=== PATIENT | female | born 1990 | race Caucasian/White ===

== ENCOUNTER → 2019-11-24 13:53 | Outpatient (BNVA) | payer OTHER, SELFPAY | PROVIDERS: Family Provider Nurse Practitioner; PCP Nurse Practitioner; Visit Provider Nurse Practitioner Family | DX: R10.11 Right upper quadrant pain (principal); R19.7 Diarrhea, unspecified; R11.2 Nausea with vomiting, unspecified | CPT/HCPCS: 80053; 84443; 85025 ==

== ENCOUNTER 2020-06-18 11:10 | Inpatient (IN) | payer SELFPAY ==
[2020-06-18] VITALS (11 sets, daily range): BP systolic 101–115; BP diastolic 58–80; PULSE 78–108; RESP 14–20; TEMP 37–37.4; O2SAT 95–98; BMI 49.2
[2020-06-18 13:01] LABS: Basophils % 0.2 %; Eosinophils # 0.1 10^3/uL (0.0-0.8); Eosinophils % 0.5 %; Hematocrit 35.8 % (37.0-47.0); Hemoglobin 11.7 g/dL (11.5-15.3); Lymphocytes # 2.2 10^3/uL (0.8-4.8); Mean Corpuscular HGB Conc 32.7 g/dL (30.0-36.0); Mean Corpuscular Hemoglobin 30.3 pg (28.0-34.0); Mean Corpuscular Volume 92.7 fL (81-99); Mean Platelet Volume 9.9 fL (7.4-10.4); Monocytes # 1.3 10^3/uL (0.2-0.9); Monocytes % 8.3 %; Neutrophils # 12.12 10^3/uL (1.8-7.7); Neutrophils % 76.6 %; Nucleated Red Blood Cells % 0 %; Platelet Count 348 10^3/cmm (130-400); Red Blood Count 3.86 10^6/uL (4.1-5.3); Red Cell Distribution Width 12.6 % (12.1-15.1); White Blood Count 15.8 10^3/uL (4.0-10.0)
--- NOTE | 2020-06-18 13:04 | CT_ITS ---
WS: [id number] CT ABDOMEN PELVIS TECHNIQUE: Contrast-enhanced CT of the abdomen and pelvis with coronal and sagittal reformatted image s. CLINICAL INFORMATION: diffuse abdominal pain COMPARISON: None. DLP: 2053.[address] scans at [facility] use at least one of these dose optimization techniques: automat ed exposure control; mA and/or kV adjustment per patient size (includes targeted exams where dose is matched to clinical indication); or iterative reconstruction. FINDINGS: Mild diffuse fatty infiltration liver. Normal gallbladder. Adrenal glands are normal. Normal renal pa renchymal enhancement. 1.5 cm right renal cyst. Lung bases are well aerated. Normal GE junction. Norm al caliber abdominal aorta. Normal gallbladder. Incidental tiny fat-containing umbilical hernia. Small amount of free fluid in the pelvis. Peripheral enhancing right ovarian cyst or corpus luteum cy st measuring 2.7 x 1.9 CM. Small amount of adjacent free fluid with free fluid in the pelvis. Submucosal enhancement and inflammatory stranding involving a few loops of small bowel in the pelvis likely infectious or inflammatory. Recommend correlation for small bowel enteritis. This involves dis karli ileal loops. Normal sigmoid colon. Colon is decompressed and normal in appearance. A few reactive lymph nodes along the mesenteric root and right lower quadrant. Normal appendix in the right lower q uadrant. CT/CT abdomen pelvis w con* [id number] IMPRESSION: 1. Peripherally enhancing right ovarian cyst or corpus luteum cyst measuring 2 .7 x 1.9 cm with adjacent free fluid and free fluid in the pelvis. 2. Submucosal enhancement and inflammatory stranding involving a few loops of small bowel in the pelvis likely infectious or inflammatory. Findings can be se en with inflammatory bowel disease. Recommend correlation for small bowel enter itis. 3. Normal appendix in the right lower quadrant. 4. Mild diffuse fatty infiltration liver. 5. No other significant findings.
--- NOTE | 2020-06-18 13:04 | US_ITS ---
WS: [id number] ULTRASOUND PELVIS TECHNIQUE: Transvaginal. CLINICAL INFORMATION: pain, discharge; CT scan showing poss tubo-ovarian abscess LMP: : No. COMPARISON: None. FINDINGS: Uterus Orientation: Anteverted. Size: 8.5 x 5.1 x 5.8 cm Masses: None. Cervix: Normal. Endometrium: Fluid in the endometrial canal. Endometrium thickness: 0.7 cm. Adnexa: Dilated tubular structure in the left adnexa with internal debris and complex septations susp icious for tubo-ovarian abscess. This does not demonstrate peristalsis. This would correspond to the inflammatory changes seen on the CT. Complex fluid in the cul-de-sac with internal debris. Simple right ovarian cyst Right ovary size: 4.3 x 3.4 x 2.5 cm. Left ovary size: Not visualized Free fluid: Moderate amount of free fluid in the cul-de-sac Other findings: None. US/US transvaginal [id number] IMPRESSION: 1. Suspected left tubo-ovarian abscess with complex fluid and debris. 2. Moderate amount of free fluid in the cul-de-sac with internal debris. 3. Incidental simple right ovarian cyst. Notified ISSA Duque at 06/18/2020 2:59 PM.
--- NOTE | 2020-06-18 13:06 | W.ED.ABDPA2 ---
Documented by User: ISSA Duque 06/18/20 16:26 HPI - Abdominal Pain General: Chief Complaint: Abdominal Pain Stated Complaint: SEVERE AB PAIN Time Seen by Provider: 06/18/20 11:27 Source: patient Mode of arrival: ambulatory Limitations: no limitations History of Present Illness: HPI narrative: Patient is a 30-year-old female who presents to ED today with a complaint of abdominal pain. Patient tells me pain initially began 3 to 4 days ago in her lower left abdomen. She tells me since that time pain has spread and is now diffuse. She was seen at [facility] ED yesterday and had a CT scan performed which showed a 2 mm ureter calculus. Patient states she was discharged home and called today after [facility] radiologist over read [facility] interpretation. Patient states they told her she could have an enteritis or a tubo-ovarian abscess and needed to seek re-evaluation. Patient tells me her pain has progressively worsened since onset. She is having nausea with several episodes of non-bloody vomit. She reports diarrhea. She does admit to yellow odorous vaginal discharge. She reports being monogamous with her partner and has no concern for sexually transmitted infections. Patient reports fever yesterday of 101.3. MD elicited complaint: abdominal pain Associated Symptoms: Reports diarrhea, fever(s), nausea and vomiting; Denies chills, coffee ground emesis, dysuria, heartburn, hematochezia, hematemesis, melena and syncope Review of Systems Const: Reports: fever(s); Denies: chills, body aches, fatigue or malaise Eyes: Denies: change in vision, photophobia or seeing flashes Card: Denies: chest pain, palpitations, edema, swelling of feet/ankles, lightheadedness, syncope, pre-syncope, dyspnea on exertion, orthopnea or leg pain with exertion Resp: Denies: dyspnea, hemoptysis or chest congestion GI: Reports: abdominal pain, nausea, vomiting and diarrhea; Denies: hematemesis, coffee ground emesis, heartburn, hematochezia or melena : Reports: vaginal odor and vaginal discharge; Denies: flank pain, difficulty voiding, dysuria, urinary frequency, urinary urgency, urinary hesitancy, genital lesions, genital pruritis or vaginal bleeding Musc: Denies: neck pain, back pain, extremity pain, extremity swelling, joint pain or joint swelling Skin/Breast: Denies: rash Neuro: Denies: headache(s) PFSH ED PFSH: Medical History Depression with anxiety Surgical History (Updated 06/18/20 @ 19:29 by Mitchel Gallegos MD) No pertinent past surgical history Family History Other Cancer Diabetes Hypertension Psychiatric illness Social History Smoking and tobacco status: current every day smoker Alcohol intake: never Physical Exam Const: COMMON NORMALS: patient oriented x3, no limitations and alert NUTRITIONAL APPEARANCE: obese morbidly obese ORIENTATION/CONSCIOUSNESS: Yes awake, Yes oriented to person, Yes oriented to place and Yes oriented to time HENMT: COMMON NORMALS: normocephalic and atraumatic HEAD & SCALP: normocephalic and atraumatic Resp: COMMON NORMALS: normal respiratory effort and clear to auscultation bilaterally AUSCULTATION: clear to auscultation bilaterally Cardio: COMMON NORMALS: regular rate and regular rhythm RATE: regular rate RHYTHM: regular rhythm GI: COMMON NORMALS: Normal to inspection, nondistended, normoactive bowel sounds present, Soft to palpation, No hepatosplenomegaly present and no masses INSPECTION: Yes normal to inspection AUSCULTATION: Yes normoactive bowel sounds PALPATION: Yes Soft to palpation, Yes Tenderness to palpation present (GI) (diffuse tenderness; pt cries with even light palpation), Yes Guarding due to palpation present (GI) and Yes No hepatosplenomegaly present : COMMON NORMALS: Yes no CVA tenderness BLADDER/KIDNEY EXAM: Yes no CVA tenderness SPECULUM EXAM - CERVIX: Yes Abnormal cervical discharge present yellow BIMANUAL EXAM - VAGINA & UTERUS: Yes cervical motion tenderness and Yes Uterine tenderness BIMANUAL EXAM - ADNEXA, OTHER: Yes tender Back/Pelvis: COMMON NORMALS: no CVA tenderness Extremity: COMMON NORMALS: normal to inspection Neuro: COMMON NORMALS: patient oriented x3 SENSORIUM/ORIENTATION: Yes alert, Yes oriented to person, Yes oriented to place and Yes oriented to time Skin: COMMON NORMALS: no rashes or lesions noted GENERAL SKIN EXAM: no rashes or lesions noted Course Consultations: Consultation #1: Dr. Colby-recommends admission to hospitalist for IV abx and he will consult. Recommends 2mg/kg loading dose of gentamicin then 1.5mg/kg maintenance dose q 8 hours, clindamycin 900mg q 8 hours, and cefoxitin 2g q 6 hours Time: 16:08 Vital Signs: Vital signs: Vital Signs Temperature 98.6 F 06/18/20 11:22 Pulse Rate 78 06/18/20 19:46 Respiratory Rate 16 06/18/20 19:46 Blood Pressure 110/74 06/18/20 19:46 Pulse Oximetry 96 06/18/20 19:46 MDM - Abdominal Pain MDM Narrative: Medical decision making narrative: Patient is a nice 30-year-old female who presented to ED today with a complaint of diffuse abdominal pain. Her pain initially started 5 days ago with left lower pelvic pain. She was initially seen at [facility] and misdiagnosed with a ureter stone. Patient was called the following day after radiology over read and told she needed to seek evaluation due to abnormal CT findings. Patient today on imaging has a left tubo-ovarian abscess with debris and free fluid in her cul-de-sac. She is not tachycardic, hypotensive, or febrile although she does report a fever yesterday of 101.3. She does have leukocytosis at 15.8. She has a normal lactate. Abdominal exam reveals diffuse tenderness and guarding. At this time it is felt patient needs to be admitted for IV antibiotics and evaluated by gynecology for need for surgical intervention. I have spoken to Dr. Colby and discussed US findings. She will be admitted to the hospitalist. Dr. Schreiber is aware of this patient and will speak to hospitalist. Lab Data: Labs: Lab Results 06/18/20 06/18/20 06/18/20 Range/Units 12:50 12:50 12:50 WBC 15.8 H (4.0-10.0) 10^3/ uL RBC 3.86 L (4.1-5.3) 10^6/u L Hgb 11.7 (11.5-15.3) g/dL Hct 35.8 L (37.0-47.0) % MCV 92.7 (81-99) fL MCH 30.3 (28.0-34.0) pg MCHC 32.7 (30.0-36.0) g/dL RDW 12.6 (12.1-15.1) % Plt Count 348 (130-400) 10^3/c mm MPV 9.9 (7.4-10.4) fL Neut % (Auto) 76.6 % Lymph % (Auto) 14.0 % [place] % (Auto) 8.3 % Eos % (Auto) 0.5 % Baso % (Auto) 0.2 % Neut # (Auto) 12.12 H (1.8-7.7) 10^3/u L Lymph # (Auto) 2.2 (0.8-4.8) 10^3/u L [place] # (Auto) 1.3 H (0.2-0.9) 10^3/u L Eos # (Auto) 0.1 (0.0-0.8) 10^3/u L Baso # (Auto) 0.0 (0.0-0.1) 10^3/u L Nucleated RBC % (a uto) 0 % Nucleated RBCs # 0.0 /100WBC Sodium 134 L (136-145) mmol/L Potassium 3.5 (3.5-5.1) mmol/L Chloride 98 (98-107) mmol/L Carbon Dioxide 26 (22-29) mmol/L Anion Gap 13.5 (5-19) BUN 5 L (6-20) mg/dL Creatinine 0.5 (0.5-0.9) mg/dL GFR Calculation 146.9 H (90-130) mL/min Glucose 115 (65-115) mg/dL Calculated Osmolal ity 276 L (285-295) mOsm/k g Lactic Acid (0.5-2.2) mmol/L Calcium 8.8 (8.5-10.5) mg/dL Total Bilirubin 0.6 (0.15-1.2) mg/dL AST 11 (0-32) U/L ALT 14 (0-33) U/L Alkaline Phosphata se 97 (35-105) IU/L Total Protein 7.2 (6.6-8.7) g/dL Albumin 3.7 (3.5-5.2) g/dL Globulin 3.5 (1.3-4.6) g/dL Lipase 62 H (13-60) U/L HCG, Qual Negative (Negative) Urine Color (Yellow) Urine Appearance (CLEAR) Urine pH (5-7) Ur Specific Gravit y (1.005-1.030) Urine Protein (Negative) Urine Glucose (UA) (Normal) Urine Ketones (Negative) Urine Blood (Negative) Urine Nitrate (Negative) Urine Bilirubin (Negative) Urine Urobilinogen (Negative) mg/dL Ur Leukocyte Darlene ase (Negative) 06/18/20 06/18/20 Range/Units 12:50 13:22 WBC (4.0-10.0) 10^3/ uL RBC (4.1-5.3) 10^6/u L Hgb (11.5-15.3) g/dL Hct (37.0-47.0) % MCV (81-99) fL MCH (28.0-34.0) pg MCHC (30.0-36.0) g/dL RDW (12.1-15.1) % Plt Count (130-400) 10^3/c mm MPV (7.4-10.4) fL Neut % (Auto) % Lymph % (Auto) % [place] % (Auto) % Eos % (Auto) % Baso % (Auto) % Neut # (Auto) (1.8-7.7) 10^3/u L Lymph # (Auto) (0.8-4.8) 10^3/u L [place] # (Auto) (0.2-0.9) 10^3/u L Eos # (Auto) (0.0-0.8) 10^3/u L Baso # (Auto) (0.0-0.1) 10^3/u L Nucleated RBC % (a uto) % Nucleated RBCs # /100WBC Sodium (136-145) mmol/L Potassium (3.5-5.1) mmol/L Chloride (98-107) mmol/L Carbon Dioxide (22-29) mmol/L Anion Gap (5-19) BUN (6-20) mg/dL Creatinine (0.5-0.9) mg/dL GFR Calculation (90-130) mL/min Glucose (65-115) mg/dL Calculated Osmolal ity (285-295) mOsm/k g Lactic Acid 0.9 (0.5-2.2) mmol/L Calcium (8.5-10.5) mg/dL Total Bilirubin (0.15-1.2) mg/dL AST (0-32) U/L ALT (0-33) U/L Alkaline Phosphata se (35-105) IU/L Total Protein (6.6-8.7) g/dL Albumin (3.5-5.2) g/dL Globulin (1.3-4.6) g/dL Lipase (13-60) U/L HCG, Qual (Negative) Urine Color Yellow (Yellow) Urine Appearance Clear (CLEAR) Urine pH 5 (5-7) Ur Specific Gravit y 1.010 (1.005-1.030) Urine Protein Neg (Negative) Urine Glucose (UA) Norm (Normal) Urine Ketones Negative (Negative) Urine Blood Neg (Negative) Urine Nitrate Negative (Negative) Urine Bilirubin Neg (Negative) Urine Urobilinogen Norm (Negative) mg/dL Ur Leukocyte Darlene ase Negative (Negative) Imaging Data ^: CT Abd/Pel: Radiologist's impression: [address] [address] [address] Scan Report Signed Patient: Jona Sandoval #: [id number] : 1990Acct#:[id number] Age/Sex: FAD Date: 06/18/20 Loc: [facility]/Bed: Attending Dr: Ordering Provider/Ordering MD: Yuliya Wills Date of Service: 06/18/20 Procedure(s): CT abdomen pelvis w con* [id number] Accession Number(s): [id number] Report Number: [id number] WS: [id number] CT ABDOMEN PELVIS TECHNIQUE: Contrast-enhanced CT of the abdomen and pelvis with coronal and sagittal reformatted images. CLINICAL INFORMATION: diffuse abdominal pain COMPARISON: None. DLP: 2053.[address] scans at [facility] use at least one of these dose optimization techniques: automated exposure control; mA and/or kV adjustment per patient size (includes targeted exams where dose is matched to clinical indication); or iterative reconstruction. FINDINGS: Mild diffuse fatty infiltration liver. Normal gallbladder. Adrenal glands are normal. Normal renal parenchymal enhancement. 1.5 cm right renal cyst. Lung bases are well aerated. Normal GE junction. Normal caliber abdominal aorta. Normal gallbladder. Incidental tiny fat-containing umbilical hernia. Small amount of free fluid in the pelvis. Peripheral enhancing right ovarian cyst or corpus luteum cyst measuring 2.7 x 1.9 CM. Small amount of adjacent free fluid with free fluid in the pelvis. Submucosal enhancement and inflammatory stranding involving a few loops of small bowel in the pelvis likely infectious or inflammatory. Recommend correlation for small bowel enteritis. This involves distal ileal loops. Normal sigmoid colon. Colon is decompressed and normal in appearance. A few reactive lymph nodes along the mesenteric root and right lower quadrant. Normal appendix in the right lower quadrant. CT/CT abdomen pelvis w con* [id number] IMPRESSION: 1. Peripherally enhancing right ovarian cyst or corpus luteum cyst measuring 2.7 x 1.9 cm with adjacent free fluid and free fluid in the pelvis. 2. Submucosal enhancement and inflammatory stranding involving a few loops of small bowel in the pelvis likely infectious or inflammatory. Findings can be seen with inflammatory bowel disease. Recommend correlation for small bowel enteritis. 3. Normal appendix in the right lower quadrant. 4. Mild diffuse fatty infiltration liver. 5. No other significant findings. Dictated By:Praneeth Gleason MD Signed By:Praneeth Gleasonigned Date/Time:06/18/20 1411 DD/ 1356 US pelvis: Radiologist's impression: [address] [place] [address] Ultrasound Report Signed with Addenda Patient: Jona Sandoval #: [id number] : 1990Acct#:[id number] Age/Sex: 30 / FADM Date: 06/18/20 Loc: [facility]/Bed: Attending Dr: Ordering Provider/Ordering MD: Yuliya Wills Date of Service: 06/18/20 Procedure(s): US transvaginal [id number] Accession Number(s): [id number] Report Number: [id number] ADDENDUM WS: [id number] Suspected left tubo-ovarian abscess measures 7.9 x 7.4 x 3.3 cm Addendum Dictated By: Praneeth Gleason MD Addendum Signed By: Praneeth Gleasonigned Date/Time:06/18/20 5710 Addendum Cosigned By: WS: [id number] ULTRASOUND PELVIS TECHNIQUE: Transvaginal. CLINICAL INFORMATION: pain, discharge; CT scan showing poss tubo-ovarian abscess LMP: : No. COMPARISON: None. FINDINGS: Uterus Orientation: Anteverted. Size: 8.5 x 5.1 x 5.8 cm Masses: None. Cervix: Normal. Endometrium: Fluid in the endometrial canal. Endometrium thickness: 0.7 cm. Adnexa: Dilated tubular structure in the left adnexa with internal debris and complex septations suspicious for tubo-ovarian abscess. This does not demonstrate peristalsis. This would correspond to the inflammatory changes seen on the CT. Complex fluid in the cul-de-sac with internal debris. Simple right ovarian cyst Right ovary size: 4.3 x 3.4 x 2.5 cm. Left ovary size: Not visualized Free fluid: Moderate amount of free fluid in the cul-de-sac Other findings: None. US/US transvaginal [id number] IMPRESSION: 1. Suspected left tubo-ovarian abscess with complex fluid and debris. 2. Moderate amount of free fluid in the cul-de-sac with internal debris. 3. Incidental simple right ovarian cyst. Notified ISSA Duque at 06/18/2020 2:59 PM. Dictated By:Praneeth Gleason MD Signed By:Praneeth Gleason MDSigned Date/Time:06/18/20 1459 DD/ 1445 Discharge Plan Discharge Patient Disposition: Admitted As Inpatient Admit Provider: Mitchel Gallegos Clinical Impression: Left tubo-ovarian abscess Condition: Stable Sign Out Sign Out Data: Patient Sign Out occurred on 06/18/20 at 17:08. Patient's care was discussed, and care was transferred from to Pernell Schreiber MD, [facility]. Coding Level of Care Code ED Simulation Analyst for Chg Fwd Exam Comprehensive Documented by User: Pernell Schreiber MD, [facility] 06/18/20 20:05 HPI - Abdominal Pain General: Chief Complaint: Abdominal Pain Stated Complaint: SEVERE AB PAIN Time Seen by Provider: 06/18/20 11:27 [facility] ED PFSH: Medical History Depression with anxiety Surgical History (Updated 06/18/20 @ 19:29 by Mitchel Gallegos MD) No pertinent past surgical history Family History Other Cancer Diabetes Hypertension Psychiatric illness Social History Smoking and tobacco status: current every day smoker Alcohol intake: never Course Vital Signs: Vital signs: Vital Signs Temperature 98.6 F 06/18/20 11:22 Pulse Rate 78 06/18/20 19:46 Respiratory Rate 16 06/18/20 19:46 Blood Pressure 110/74 06/18/20 19:46 Pulse Oximetry 96 06/18/20 19:46 MDM - Abdominal Pain MDM Narrative: Medical decision making narrative: This pleasant 30-year-old female patient presents to the emergency department with abdominal pain and on evaluation she has a left tubo-ovarian abscess with some leakage. She also has surrounding inflammatory changes in her bowel around her left ovary. Because of all the above the senior database engineer was contacted and she is to be started on intravenous antibiotics then possibly taken for surgical drainage. She is clinically stable in the emergency department. Medical Records: Attestation: I reviewed the patient's medical records. Lab Data: Attestation: I reviewed the patient's lab results. Labs: Lab Results 06/18/20 06/18/20 06/18/20 Range/Units 12:50 12:50 12:50 WBC 15.8 H (4.0-10.0) 10^3/ uL RBC 3.86 L (4.1-5.3) 10^6/u L Hgb 11.7 (11.5-15.3) g/dL Hct 35.8 L (37.0-47.0) % MCV 92.7 (81-99) fL MCH 30.3 (28.0-34.0) pg MCHC 32.7 (30.0-36.0) g/dL RDW 12.6 (12.1-15.1) % Plt Count 348 (130-400) 10^3/c mm MPV 9.9 (7.4-10.4) fL Neut % (Auto) 76.6 % Lymph % (Auto) 14.0 % [place] % (Auto) 8.3 % Eos % (Auto) 0.5 % Baso % (Auto) 0.2 % Neut # (Auto) 12.12 H (1.8-7.7) 10^3/u L Lymph # (Auto) 2.2 (0.8-4.8) 10^3/u L [place] # (Auto) 1.3 H (0.2-0.9) 10^3/u L Eos # (Auto) 0.1 (0.0-0.8) 10^3/u L Baso # (Auto) 0.0 (0.0-0.1) 10^3/u L Nucleated RBC % (a uto) 0 % Nucleated RBCs # 0.0 /100WBC Sodium 134 L (136-145) mmol/L Potassium 3.5 (3.5-5.1) mmol/L Chloride 98 (98-107) mmol/L Carbon Dioxide 26 (22-29) mmol/L Anion Gap 13.5 (5-19) BUN 5 L (6-20) mg/dL Creatinine 0.5 (0.5-0.9) mg/dL GFR Calculation 146.9 H (90-130) mL/min Glucose 115 (65-115) mg/dL Calculated Osmolal ity 276 L (285-295) mOsm/k g Lactic Acid (0.5-2.2) mmol/L Calcium 8.8 (8.5-10.5) mg/dL Total Bilirubin 0.6 (0.15-1.2) mg/dL AST 11 (0-32) U/L ALT 14 (0-33) U/L Alkaline Phosphata se 97 (35-105) IU/L Total Protein 7.2 (6.6-8.7) g/dL Albumin 3.7 (3.5-5.2) g/dL Globulin 3.5 (1.3-4.6) g/dL Lipase 62 H (13-60) U/L HCG, Qual Negative (Negative) Urine Color (Yellow) Urine Appearance (CLEAR) Urine pH (5-7) Ur Specific Gravit y (1.005-1.030) Urine Protein (Negative) Urine Glucose (UA) (Normal) Urine Ketones (Negative) Urine Blood (Negative) Urine Nitrate (Negative) Urine Bilirubin (Negative) Urine Urobilinogen (Negative) mg/dL Ur Leukocyte Darlene ase (Negative) 06/18/20 06/18/20 Range/Units 12:50 13:22 WBC (4.0-10.0) 10^3/ uL RBC (4.1-5.3) 10^6/u L Hgb (11.5-15.3) g/dL Hct (37.0-47.0) % MCV (81-99) fL MCH (28.0-34.0) pg MCHC (30.0-36.0) g/dL RDW (12.1-15.1) % Plt Count (130-400) 10^3/c mm MPV (7.4-10.4) fL Neut % (Auto) % Lymph % (Auto) % [place] % (Auto) % Eos % (Auto) % Baso % (Auto) % Neut # (Auto) (1.8-7.7) 10^3/u L Lymph # (Auto) (0.8-4.8) 10^3/u L [place] # (Auto) (0.2-0.9) 10^3/u L Eos # (Auto) (0.0-0.8) 10^3/u L Baso # (Auto) (0.0-0.1) 10^3/u L Nucleated RBC % (a uto) % Nucleated RBCs # /100WBC Sodium (136-145) mmol/L Potassium (3.5-5.1) mmol/L Chloride (98-107) mmol/L Carbon Dioxide (22-29) mmol/L Anion Gap (5-19) BUN (6-20) mg/dL Creatinine (0.5-0.9) mg/dL GFR Calculation (90-130) mL/min Glucose (65-115) mg/dL Calculated Osmolal ity (285-295) mOsm/k g Lactic Acid 0.9 (0.5-2.2) mmol/L Calcium (8.5-10.5) mg/dL Total Bilirubin (0.15-1.2) mg/dL AST (0-32) U/L ALT (0-33) U/L Alkaline Phosphata se (35-105) IU/L Total Protein (6.6-8.7) g/dL Albumin (3.5-5.2) g/dL Globulin (1.3-4.6) g/dL Lipase (13-60) U/L HCG, Qual (Negative) Urine Color Yellow (Yellow) Urine Appearance Clear (CLEAR) Urine pH 5 (5-7) Ur Specific Gravit y 1.010 (1.005-1.030) Urine Protein Neg (Negative) Urine Glucose (UA) Norm (Normal) Urine Ketones Negative (Negative) Urine Blood Neg (Negative) Urine Nitrate Negative (Negative) Urine Bilirubin Neg (Negative) Urine Urobilinogen Norm (Negative) mg/dL Ur Leukocyte Darlene ase Negative (Negative) Discharge Plan Discharge Patient Disposition: Admitted As Inpatient Admit Provider: Mitchel Gallegos Clinical Impression: Left tubo-ovarian abscess Condition: Stable Sign Out Sign Out Data: Patient Sign Out occurred on 06/18/20 at 17:08. Patient's care was discussed, and care was transferred from to Pernell Schreiber MD, [facility]. Coding Level of Care Code ED Simulation Analyst for Chg Fwd Exam Comprehensive
[2020-06-18] MEDS: morphine 4 mg/mL SDV 1 mL IVP ×3 (13:14→17:55)
[2020-06-18] MEDS: ondansetron 2 mg/ML SDV 2 mL 4 MG IVP ×3 (13:14→23:32)
[2020-06-18 13:26] LABS: HCG, Serum Qual Negative (Negative)
[2020-06-18 13:29] LABS: Alanine Aminotransferase 14 U/L (0-33); Albumin Level 3.7 g/dL (3.5-5.2); Alkaline Phosphatase 97 IU/L (35-105); Anion Gap 13.5 (5-19); Aspartate Amino Transferase 11 U/L (0-32); Blood Urea Nitrogen 5 mg/dL (6-20); Calcium 8.8 mg/dL (8.5-10.5); Carbon Dioxide 26 mmol/L (22-29); Chloride 98 mmol/L (98-107); Globulin 3.5 g/dL (1.3-4.6); Glomerular Filtration Rate 146.9 mL/min (90-130); Glucose 115 mg/dL (65-115); Lipase 62 U/L (13-60); Osmolality Calculated 276 mOsm/kg (285-295); Potassium 3.5 mmol/L (3.5-5.1); Sodium 134 mmol/L (136-145); Total Bilirubin 0.6 mg/dL (0.15-1.2); Total Protein 7.2 g/dL (6.6-8.7)
[2020-06-18 13:30] LABS: Lactic Sepsis W/Reflex 0.9 mmol/L (0.5-2.2)
[2020-06-18] MEDS: iohexol 300 mg/mL 100 mL Btl IV (13:39)
[2020-06-18 13:50] LABS: Add Urine Microscopic? NO
[2020-06-18 14:01] LABS: Urine Appearance Clear (CLEAR); Urine Color Yellow (Yellow)
[2020-06-18 14:02] LABS: Bilirubin Urine Neg (Negative); Blood Urine Neg (Negative); Glucose Urine UA Norm (Normal); Ketones Urine Negative (Negative); Leukocyte Esterase Urine Negative (Negative); Nitrate Urine Negative (Negative); Protein Urine Neg (Negative); Urobilinogen Urine Norm (Negative); pH Urine 5 (5-7)
[2020-06-18] MEDS: fentaNYL 50 mcg/mL INJ 2mL IVP (14:35)
--- NOTE | 2020-06-18 14:55 | PC.NURSE ---
Vaginal exam chaperoned with ISSA Duque. Swabs obtained, labeled at bedside and taken to lab. Pt tolerated well.
[2020-06-18] MEDS: doxycycline 100 MG in sodium chloride 0.9% (plus) 100 ML IV (16:17)
--- NOTE | 2020-06-18 17:14 | PM.HP ---
Providers/Chief Complaint Primary Care Provider: ARUNA Garza Chief Complaint: SEVERE AB PAIN History of Present Illness 30-year-old female with past medical history significant for dislodged kaela IUD which was apparently removed in 2009 who is now presenting to hospital with abdominal pain. This was associated with fever, chills, nausea and vomiting. Also noted vaginal discharge. Patient was initially seen at outside emergency room where she was found to have a 2 mm urethral calculus on CT scan which was suspected to be the cause. She was discharged from ER on Flomax and pain medication. Apparently today she was notified that she could potentially have a tubo-ovarian abscess. She presented to ER for workup. Initial laboratory workup showed a WBC of 15.8, hemoglobin 11.7, hematocrit 35.8 and a platelet count of 348. sodium 134, potassium 3.5, chloride 98, bicarb 26, BUN 5 and creatinine is 0.5. Beta hCG was negative. Urinalysis was also negative. Abdominal CT was repeated today which showed a peripherally enhancing right ovarian cyst or corpus luteum cyst measuring 2.7 x 1.9 cm with adjacent free fluid and sub-mucosal enhancement and inflammatory stranding involving the loops of small bowel in the pelvis. Transvaginal ultrasound was then performed which showed a suspected left tubo-ovarian abscess measuring 7.9 x 7.4 x 3.3 cm. In emergency room patient was started on IV antibiotics as per recommendations from corrugator helper and admitted to medicine team. Review of Systems General: Reports: 10 or more systems reviewed and unremarkable except in HPI and below Medications/Allergies Home Medications Medication Instructions Recorded Confirmed Last Taken Type acetaminophen [Tylenol] 325 mg PO QID PRN 06/18/20 06/18/20 Unknown History Allergies Allergy/AdvReac Type Severity Reaction Status Date / Time No Known Allergies Allergy Verified 11/18/19 14:56 PFSH Acute PFSH: Medical History Depression with anxiety Surgical History (Updated 06/18/20 @ 19:29 by Mitchel Gallegos MD) No pertinent past surgical history Family History Other Cancer Diabetes Hypertension Psychiatric illness Social History Smoking and tobacco status: current every day smoker Alcohol intake: never Vitals/I&O/Wt Last Vital Signs Temp 98.6 F 06/18/20 11:22 Pulse 100 06/18/20 11:22 Resp 18 06/18/20 16:28 BP 115/80 06/18/20 11:22 Pulse Ox 98 06/18/20 16:28 06/18/20 06/18/20 06/18/20 06:59 14:59 22:59 Intake Total 50 / 50 Balance 50 / 50 Weight last 48 hrs Weight 138.346 kg Physical Exam Narrative: EXAM NARRATIVE: General: Alert, awake, mild distress due to abdominal pain HEENT: Grossly unremarkable CVS : NSR CHEST : Non-labored respiration ABD : Generalized tenderness to palpation : Defer to AUTOMOTIVE SERVICE MANAGEMENT TEACHER/ER examination Ext : No edema Data : 06/18/20 12:50 06/18/20 12:50 A&P Assessment and plan (1) Left tubo-ovarian abscess: Status: Acute (2) Depression with anxiety: Status: Chronic Sepsis due to Left TOA - Denied prior corrugator helper infections including sexually transmitted - TV US - > 7.9 x 7.4 x 3.3 cm - Culture taken in ER - As per corrugator helper recommendation on abx: - Cefoxitin 2g IV q6hr - Clindamycin 900 mg IV q8hr - Gentamycin - Pharmacy to dose - Pain control - NPO at midnight - possible need for OR - IVF at 75 cc/hr - CBC/CMP in am - Zofran PRN for nausea DVT ppx - Low risk, ambulate Attestations Medical Necessity Statement*: Patient admitted to the hospital with sepsis due to left tubo-ovarian abscess requiring IV antibiotics in possible surgery. She will likely require over 2 midnight stay in hospital for evaluation and treatment. Time Spent in Patient Care: Greater than 35 minutes (>than 50% of time spent in counselling and/or direct pt care on unit). Coding Level of Care Code Acute Varnisher Plasticoater for Alexandriag Fwd Diagnoses Left tubo-ovarian abscess N70.93 Depression with anxiety F41.8
--- NOTE | 2020-06-18 17:37 | PC.NURSE ---
Dr Gallegos at bedside.
[2020-06-18] MEDS: sodium chloride 0.9% 1,000 ML 75 ML IV (18:20)
[2020-06-18] MEDS: ketorolac 30 mg/mL INJ 15 MG IVP (18:37)
[2020-06-18] MEDS: HYDROcodone-acetaminophen 5-325 mg Tablet 1 TAB PO ×2 (19:04→23:32)
[2020-06-18] MEDS: SODIUM CHLORIDE 0.9% IV (19:22)
[2020-06-18] MEDS: GENTAMICIN IV (19:22)
[2020-06-18] MEDS: clindamycin 900 MG/50 ML PREMIX 100 MG IV (21:41)
[2020-06-18] MEDS: morphine 4 mg/mL SDV 1 mL 2 MG IVP (21:48)
[2020-06-18] MEDS: ceFOXitin 2,000 MG in sodium chloride 0.9% (plus) 50 ML 100 MG IV (23:02)
[2020-06-19] VITALS (9 sets, daily range): BP systolic 94–106; BP diastolic 56–70; PULSE 78–101; RESP 16–20; TEMP 36.6–37.2; O2SAT 94–98
[2020-06-19] MEDS: clindamycin 900 MG/50 ML PREMIX 100 MG IV ×3 (02:57→16:50)
[2020-06-19] MEDS: morphine 4 mg/mL SDV 1 mL 2 MG IVP ×4 (03:01→23:17)
[2020-06-19 05:57] LABS: Basophils % 0.2 %; Eosinophils # 0.2 10^3/uL (0.0-0.8); Eosinophils % 1.6 %; Hematocrit 32.3 % (37.0-47.0); Hemoglobin 10.3 g/dL (11.5-15.3); Lymphocytes % 15.1 %; Mean Corpuscular HGB Conc 31.9 g/dL (30.0-36.0); Mean Corpuscular Hemoglobin 30.5 pg (28.0-34.0); Mean Corpuscular Volume 95.6 fL (81-99); Mean Platelet Volume 10.2 fL (7.4-10.4); Monocytes # 1.2 10^3/uL (0.2-0.9); Monocytes % 8.9 %; Neutrophils # 9.52 10^3/uL (1.8-7.7); Neutrophils % 73.9 %; Nucleated Red Blood Cells % 0 %; Platelet Count 277 10^3/cmm (130-400); Red Blood Count 3.38 10^6/uL (4.1-5.3); Red Cell Distribution Width 12.6 % (12.1-15.1); White Blood Count 12.9 10^3/uL (4.0-10.0)
[2020-06-19 06:27] LABS: Alanine Aminotransferase 11 U/L (0-33); Albumin Level 3.3 g/dL (3.5-5.2); Alkaline Phosphatase 85 IU/L (35-105); Anion Gap 14.6 (5-19); Aspartate Amino Transferase 10 U/L (0-32); Blood Urea Nitrogen 6 mg/dL (6-20); Carbon Dioxide 26 mmol/L (22-29); Chloride 100 mmol/L (98-107); Globulin 2.5 g/dL (1.3-4.6); Glomerular Filtration Rate 99.6 mL/min (90-130); Glucose 102 mg/dL (65-115); Osmolality Calculated 282 mOsm/kg (285-295); Potassium 3.6 mmol/L (3.5-5.1); Sodium 137 mmol/L (136-145); Total Bilirubin 0.7 mg/dL (0.15-1.2); Total Protein 5.8 g/dL (6.6-8.7)
[2020-06-19] MEDS: ceFOXitin 2,000 MG in sodium chloride 0.9% (plus) 50 ML 100 MG IV ×4 (06:52→23:50)
[2020-06-19] MEDS: ondansetron 2 mg/ML SDV 2 mL 4 MG IVP ×2 (06:53→15:41)
[2020-06-19] MEDS: metoclopramide 5 mg/mL SDV 2 mL IVP (10:10)
[2020-06-19] MEDS: sodium chloride 0.9% 1,000 ML 75 ML IV ×2 (11:38→23:51)
[2020-06-19] MEDS: HYDROcodone-acetaminophen 5-325 mg Tablet 1 TAB PO ×2 (13:47→20:14)
--- NOTE | 2020-06-19 15:18 | PM.PN ---
Subjective Subjective: Interval history: Patient complaining of abdominal pain overnight. Addition was noted to have nausea after pain medication. Medications: Reviewed: Yes Vitals/I&O/Wt Last Vital Signs Temp 98.1 F 06/19/20 11:44 Pulse 78 06/19/20 11:44 Resp 18 06/19/20 11:44 BP 94/56 06/19/20 11:44 Pulse Ox 96 06/19/20 11:44 06/19/20 06/19/20 06/19/20 06:59 14:59 22:59 Intake Total 332.5 / 482.5 1390 / 1390 Balance 332.5 / 482.5 1390 / 1390 Weight last 48 hrs Weight 138.346 kg Physical Exam Narrative: EXAM NARRATIVE: General: Alert, awake, No apparent distress HEENT: Grossly unremarkable CVS : NSR CHEST : Non-labored respiration ABD : Generalized tenderness to palpation : Defer to INTERNAL MEDICINE PHYSICIAN/ER examination Ext : No edema Data : 06/19/20 04:43 06/19/20 04:43 Micro: Microbiology 06/18/20 14:52 Wet Prep - Final Vaginal A&P Assessment and plan (1) Left tubo-ovarian abscess: Status: Acute (2) Depression with anxiety: Status: Chronic Sepsis due to Left TOA - Denied prior learning technologies specialist infections including sexually transmitted - WBC improving - TV US - > 7.9 x 7.4 x 3.3 cm - Culture taken in ER - As per learning technologies specialist recommendation on abx: - Cefoxitin 2g IV q6hr - Clindamycin 900 mg IV q8hr - Gentamycin - Pharmacy to dose - Pain control - IVF at 75 cc/hr - CBC/CMP in am - Zofran PRN for nausea GI ppx - Protonix 40mg PO daily DVT ppx - Low risk, ambulate - SCDs Attestations Medical Necessity Statement*: Will require further hospitalization for managment of TOA requiring IV abx Time Spent in Patient Care: Greater than 35 minutes (>than 50% of time spent in counselling and/or direct pt care on unit). Coding Level of Care Code Acute Shale Processing Technician for Chg Fwd Diagnoses Left tubo-ovarian abscess N70.93 Depression with anxiety F41.8
[2020-06-19] MEDS: pantoprazole DR 40 mg Tablet PO (15:41)
--- NOTE | 2020-06-19 17:08 | PC.CHAP ---
Pastoral Care Encounter/Spiritual Assessment Type of Contact [] Declined juvenile probation officer visit [x] Patient/Family/Request visit [] Outpatient visit [] Follow-up visit [] Physician referral [] Code/Alert [] Routine visit [] Staff referral [] Actively dying [] Patient sleeping [] Family support [] [] Out of room [] Palliative care [] [x] Receiving care in room [] Pre-surgical visit [] Trauma [] Long length of stay [] ICU visit [] Other: Relational/Emotional Strength [x] Patient feels connected with others/family/visitors/staff [] Distress [] Loneliness/isolation [] Abandonment Spirituality of Patient [] Person of Alexandra [] Attends Sabianism of their Alexandra [x] Believes in Prayer [] Reads Bible or Yazdanism materials [] There are Spiritual issues to be addressed Heel Seat Laster Interventions [x] Prayer [x] Active listening [x] Non-anxious presence [] Spiritual/emotional support [] Crisis/trauma care [] Spiritual counseling [] Bereavement support [] Provided bereavement packet [] Provided Bible/devotional materials [] Provided toy/stuffed animal, coloring book to patient or family member [] Provided Communion [] Anointing/[place] [] Salvation [x] Completed spiritual assessment [] Other: Impact on Illness or Injury [] Angry [] Fearful [] Anxious [] Often cries [] Exhaustion [] Unable to work [] Unable to attend gnosticism [] Unable to walk/stand [] Unable to read [] Unable to drive [] Unable to eat/drink [] Unable to sleep [] Unable to be with family [] Patient intubated [] Other: Summary A happy couple, her was with her. I asked if I could pray with them, & it was 'alright.' Time spent with patient 5min
--- NOTE | 2020-06-19 21:00 | PC.NURSE ---
PT STATES THAT SHE IS VERY UPSET WITH THE CARE THAT SHE HAS HAD. SHE WAS NOT HAPPY ABOUT THE VISIT WITH THE HOSPITALIST, DR PELAYO, BECAUSE SHE FELT THAT HE JUST BLEW ME OFF AND DID NOT ADDRESS MY CONCERNS . SHE IS UPSET THAT THE OBGYN DR HAS NOT COME TO SEE HER AFTER SHE WAS TOLD IN THE ER HE WOULD COME AND SEE HER AND POSSIBLY DISCUSS SURGERY. PT STATED I JUST WANT MY TO COME GET ME AND IS VERY TEARFUL. THIS RN ALERTED CHARGE NURSE AND FRENCH TUTOR OR PATIENT'S CONCERNS. AFTER GETTING IN TOUCH WITH OBGYN, DR SON, THIS NURSE RELAYED HIS PLAN TO PATIENT AND THAT HE WOULD BE IN TO SEE HER TOMORROW MORNING 06/20. PT STATED THAT SHE FEELS BETTER KNOWING THAT NOW. NO OTHER QUESTIONS AT THIS TIME.
[2020-06-19] MEDS: nicotine 21 mg Patch 1 PATCH TRANSDERMA (23:51)
[2020-06-20] VITALS (7 sets, daily range): BP systolic 96–118; BP diastolic 61–68; PULSE 76–89; RESP 18; TEMP 36.3–37.5; O2SAT 95–98
[2020-06-20] MEDS: HYDROcodone-acetaminophen 5-325 mg Tablet 1 TAB PO ×5 (01:50→21:31)
[2020-06-20] MEDS: clindamycin 900 MG/50 ML PREMIX 50 MG IV (02:20)
[2020-06-20] MEDS: ondansetron 2 mg/ML SDV 2 mL 4 MG IVP ×3 (02:24→16:50)
[2020-06-20 03:07] LABS: Basophils % 0.3 %; Eosinophils # 0.1 10^3/uL (0.0-0.8); Eosinophils % 1.3 %; Hematocrit 31.8 % (37.0-47.0); Hemoglobin 10.1 g/dL (11.5-15.3); Lymphocytes # 2.2 10^3/uL (0.8-4.8); Lymphocytes % 22.4 %; Mean Corpuscular HGB Conc 31.8 g/dL (30.0-36.0); Mean Corpuscular Hemoglobin 29.5 pg (28.0-34.0); Mean Platelet Volume 9.5 fL (7.4-10.4); Monocytes % 10.1 %; Neutrophils # 6.48 10^3/uL (1.8-7.7); Neutrophils % 65.5 %; Nucleated Red Blood Cells % 0 %; Platelet Count 298 10^3/cmm (130-400); Red Blood Count 3.42 10^6/uL (4.1-5.3); Red Cell Distribution Width 12.3 % (12.1-15.1); White Blood Count 9.9 10^3/uL (4.0-10.0)
[2020-06-20 03:29] LABS: Gentamicin Trough 0.3 ug/mL (0.0-8.0)
[2020-06-20 03:31] LABS: Alanine Aminotransferase 11 U/L (0-33); Alkaline Phosphatase 84 IU/L (35-105); Anion Gap 13.4 (5-19); Aspartate Amino Transferase 17 U/L (0-32); Blood Urea Nitrogen 3 mg/dL (6-20); Calcium 8.3 mg/dL (8.5-10.5); Carbon Dioxide 27 mmol/L (22-29); Chloride 102 mmol/L (98-107); Globulin 3.5 g/dL (1.3-4.6); Glucose 149 mg/dL (65-115); Osmolality Calculated 287 mOsm/kg (285-295); Potassium 3.4 mmol/L (3.5-5.1); Sodium 139 mmol/L (136-145); Total Bilirubin 0.5 mg/dL (0.15-1.2); Total Protein 6.5 g/dL (6.6-8.7)
[2020-06-20] MEDS: morphine 4 mg/mL SDV 1 mL 2 MG IVP ×2 (04:48→21:36)
[2020-06-20] MEDS: ceFOXitin 2,000 MG in sodium chloride 0.9% (plus) 50 ML 100 MG IV ×3 (04:49→16:51)
[2020-06-20] MEDS: clindamycin 900 MG/50 ML PREMIX 100 MG IV ×2 (08:16→17:41)
[2020-06-20] MEDS: pantoprazole DR 40 mg Tablet PO (08:16)
[2020-06-20] MEDS: lanolin oint 7 gm 1 APPLIC TOPICAL (10:10)
--- NOTE | 2020-06-20 12:21 | PC.RESP ---
Smoking Cessation information sent to patient.
--- NOTE | 2020-06-20 12:43 | P.PN_ITS ---
Subjective Subjective: Interval history: C/o abdominal pain and nausea. noted improvement in nausea with reglan. low grade fevers. Medications: Reviewed: Yes Vitals/I&O/Wt Last Vital Signs Temp 99.5 F 06/20/20 11:43 Pulse 84 06/20/20 11:43 Resp 18 06/20/20 11:43 BP 96/61 06/20/20 11:43 Pulse Ox 98 06/20/20 11:43 06/19/20 06/20/20 06/20/20 22:59 06:59 14:59 Intake Total 340 / 1730 1077.50 / 2807.50 Output Total 700 / 700 600 / 600 Balance -360 / 1030 1077.50 / 2107.50 -600 / -600 Physical Exam Narrative: EXAM NARRATIVE: General: Alert, awake, No apparent distress HEENT: Grossly unremarkable CVS : NSR CHEST : Non-labored respiration ABD : Generalized tenderness to palpation : Defer to TRANSFORMER ASSEMBLER/ER examination Ext : No edema Data : 06/20/20 02:56 06/20/20 02:56 A&P Assessment and plan (1) Left tubo-ovarian abscess: Status: Acute (2) Depression with anxiety: Status: Chronic Sepsis due to Left TOA - Denied prior imcu specialist infections including sexually transmitted - Leukocytosis resolved. - TV US - > 7.9 x 7.4 x 3.3 cm - Culture taken in ER - As per imcu specialist recommendation on abx: - Cefoxitin 2g IV q6hr - Clindamycin 900 mg IV q8hr - Gentamycin - Pharmacy to dose - Pain control - IVF at 75 cc/hr - CBC/CMP in am - Zofran / Reglan PRN for nausea - Awaiting further TRANSFORMER ASSEMBLER plan Hypokalemia - K 3.3 - KCL 20 MEQ PO x 1 - BMP in am GI ppx - Protonix 40mg PO daily DVT ppx - Low risk, ambulate - SCDs Attestations Medical Necessity Statement*: will require further hospitalization for IV antibiotics. Time Spent in Patient Care: Greater than 35 minutes (>than 50% of time spent in counselling and/or direct pt care on unit) . Coding Level of Care Code Acute Oil [employer] Gas Well Treatment Operator for Chg Fwd Diagnoses Left tubo-ovarian abscess N70.93 Depression with anxiety F41.8
[2020-06-20] MEDS: potassium chloride ER 20 mEq Tablet PO (13:27)
[2020-06-20] MEDS: sodium chloride 0.9% 1,000 ML 75 ML IV (13:27)
[2020-06-21] VITALS (18 sets, daily range): BP systolic 94–147; BP diastolic 59–84; PULSE 60–101; RESP 14–20; TEMP 36.4–37.1; O2SAT 93–100
[2020-06-21] MEDS: ceFOXitin 2,000 MG in sodium chloride 0.9% (plus) 50 ML 100 MG IV ×3 (00:21→23:05)
[2020-06-21] MEDS: ondansetron 2 mg/ML SDV 2 mL 4 MG IVP ×4 (00:23→19:01)
[2020-06-21] MEDS: nicotine 21 mg Patch 1 PATCH TRANSDERMA (00:24)
[2020-06-21] MEDS: clindamycin 900 MG/50 ML PREMIX 100 MG IV ×2 (02:04→11:19)
[2020-06-21] MEDS: HYDROcodone-acetaminophen 5-325 mg Tablet 1 TAB PO ×2 (02:04→11:35)
[2020-06-21] MEDS: sodium chloride 0.9% 1,000 ML 75 ML IV (02:05)
[2020-06-21] MEDS: ketorolac 30 mg/mL INJ IVP ×2 (04:30→20:18)
[2020-06-21] MEDS: morphine 4 mg/mL SDV 1 mL 2 MG IVP (04:31)
[2020-06-21 05:14] LABS: Basophils % 0.4 %; Eosinophils # 0.2 10^3/uL (0.0-0.8); Hematocrit 32.4 % (37.0-47.0); Hemoglobin 10.6 g/dL (11.5-15.3); Lymphocytes # 2.1 10^3/uL (0.8-4.8); Lymphocytes % 19.4 %; Mean Corpuscular HGB Conc 32.7 g/dL (30.0-36.0); Mean Corpuscular Hemoglobin 30.5 pg (28.0-34.0); Mean Corpuscular Volume 93.1 fL (81-99); Monocytes # 1.1 10^3/uL (0.2-0.9); Monocytes % 10.4 %; Neutrophils # 7.27 10^3/uL (1.8-7.7); Neutrophils % 67.2 %; Nucleated Red Blood Cells % 0 %; Platelet Count 375 10^3/cmm (130-400); Red Blood Count 3.48 10^6/uL (4.1-5.3); Red Cell Distribution Width 12.3 % (12.1-15.1); White Blood Count 10.8 10^3/uL (4.0-10.0)
[2020-06-21 05:43] LABS: Alanine Aminotransferase 14 U/L (0-33); Albumin Level 3.3 g/dL (3.5-5.2); Alkaline Phosphatase 154 IU/L (35-105); Anion Gap 15.4 (5-19); Aspartate Amino Transferase 13 U/L (0-32); Blood Urea Nitrogen 2 mg/dL (6-20); Calcium 8.6 mg/dL (8.5-10.5); Carbon Dioxide 25 mmol/L (22-29); Chloride 100 mmol/L (98-107); Globulin 3.6 g/dL (1.3-4.6); Glucose 102 mg/dL (65-115); Osmolality Calculated 280 mOsm/kg (285-295); Potassium 3.4 mmol/L (3.5-5.1); Sodium 137 mmol/L (136-145); Total Bilirubin 0.4 mg/dL (0.15-1.2); Total Protein 6.9 g/dL (6.6-8.7)
[2020-06-21 05:58] LABS: Lactic Sepsis W/Reflex 0.6 mmol/L (0.5-2.2); Magnesium 1.9 mg/dL (1.7-2.3)
--- NOTE | 2020-06-21 07:08 | US_ITS ---
WS: [id number] ULTRASOUND PELVIS TECHNIQUE: Transvaginal. CLINICAL INFORMATION: tubo-ovarian abscess : No. COMPARISON: June 18, [address] FINDINGS: Uterus Orientation: Anteverted. Size: 8.0 x 4.1 cm Masses: None. Cervix: Normal. Endometrium: Normal. Suspected left tubo-ovarian abscess appears slightly progressed today with increased internal debris and septations and slightly more tubal distention. This measures approximately 7.8 x 7.0 x 4.3 CM. Right ovary not evaluated today due to patient's difficulty tolerating further imaging Left ovary size: Left ovary appears slightly enlarged measuring 4.1 x 3.6 x 4.5 cm. Free fluid: Small amount Other findings: None. US/US transvaginal [id number] IMPRESSION: 1. Suspected left tubo-ovarian abscess appears slightly progressed today with increased internal debris and septations and slightly more tubal distention. Th is measures approximately 7.8 x 7.0 x 4.3 CM. 2. Adjacent left ovary appears to be seen today. This is slightly enlarged and edematous measuring 4.1 x 3.6 x 4.5 cm. 3. Small amount of free fluid in the cul-de-sac. Message left for Fuad Colby MD at 06/21/2020 10:48 AM.
[2020-06-21] MEDS: pantoprazole DR 40 mg Tablet PO (11:35)
[2020-06-21] MEDS: potassium chloride ER 20 mEq Tablet PO (11:35)
--- NOTE | 2020-06-21 12:05 | PM.OBGYCN ---
Providers/Reason for Consult Consulting Physican/Specialty*: CIRCUIT JUDGE Reason for Consult*: Abdominal pain Attending Physician: Mitchel Gallegos Primary Care Provider: ARUNA Garza CIRCUIT JUDGE Consult HPI History of Present Illness Chela Sandoval is a 30 year old female with acute abdominal pain seen in the emergency room. Abdominal pelvic CT scan and ultrasound showed a tubal complex left adnexal mass. Diagnosed with left tubo-ovarian abscess and admitted for 48 hours observation with antibiotics. Review of Systems Const: Reports: fever(s); Denies: chills, body aches, fatigue or malaise Eyes: Denies: change in vision, photophobia or seeing flashes Card: Denies: chest pain, palpitations, edema, swelling of feet/ankles, lightheadedness, syncope, pre-syncope, dyspnea on exertion, orthopnea or leg pain with exertion Resp: Denies: dyspnea, hemoptysis or chest congestion GI: Reports: abdominal pain, nausea, vomiting and diarrhea; Denies: hematemesis, coffee ground emesis, heartburn, hematochezia or melena : Reports: vaginal odor and vaginal discharge; Denies: flank pain, difficulty voiding, dysuria, urinary frequency, urinary urgency, urinary hesitancy, genital lesions, genital pruritis or vaginal bleeding Musc: Denies: neck pain, back pain, extremity pain, extremity swelling, joint pain or joint swelling Skin/Breast: Denies: rash Neuro: Denies: headache(s) Meds/Allergies Home Medications and Allergies Home Medications Medication Instructions Recorded Confirmed Last Taken Type acetaminophen [Tylenol] 325 mg PO QID PRN 06/18/20 06/18/20 Unknown History Allergies Allergy/AdvReac Type Severity Reaction Status Date / Time No Known Allergies Allergy Verified 11/18/19 14:56 Current Medications Current Medications Generic Name Dose Route Start Last Admin Trade Name Freq PRN Reason Stop Dose Admin Hydrocodone Bitart/Acetaminophen 1 tab 06/18/20 17:10 06/21/20 11:35 Hydrocodone-Acetaminophen 5-325 Mg Tablet PO 1 tab Q4H PRN Administration MODERATE TO SEVERE PAIN Sodium Chloride 1,000 mls @ 75 mls/hr 06/18/20 17:15 06/21/20 02:05 Sodium Chloride 0.9% IV 75 mls/hr .[id number] MARIAN Administration Cefoxitin Sodium 2,000 mg/ 50 mls @ 100 mls/hr 06/18/20 23:00 06/21/20 06:00 Sodium Chloride IV 100 mls/hr Q6H MARIAN Administration Protocol Clindamycin HCl/Dextrose 900 mg in 50 mls @ 100 mls/hr 06/19/20 01:00 06/21/20 11:19 Cleocin IV 100 mls/hr Q8H MARIAN Administration Protocol Gentamicin Sulfate 500 mg/ 112.5 mls @ 225 mls/hr 06/20/20 04:30 06/21/20 04:30 Sodium Chloride IV 225 mls/hr Q24H MARIAN Administration As Directed Lanolin 1 applic 06/20/20 09:46 06/20/20 10:10 Lanolin Oint 7 Gm TOPICAL 1 appful PRN PRN Administration DRYNESS Morphine Sulfate 2 mg 06/18/20 17:10 06/21/20 04:31 Morphine 4 Mg/Ml Sdv 1 Ml IVP 2 mg Q4H PRN Administration SEVERE PAIN Nicotine 1 patch 06/19/20 23:45 06/21/20 00:24 Nicotine 21 Mg Patch TRANSDERMA 1 patch DAILY PRN Administration NICOTINE WITHDRAWAL Ondansetron HCl 4 mg 06/18/20 17:10 06/21/20 11:35 Ondansetron 2 Mg/Ml Sdv 2 Ml IVP 4 mg Q8H PRN Administration vomiting, or N/V if npo Pantoprazole Sodium 40 mg 06/19/20 15:20 06/21/20 11:[address] 40 Mg Tablet PO 40 mg DAILY MARIAN Administration PFSH CIRCUIT JUDGE PFSH: Medical History Depression with anxiety Surgical History (Updated 06/18/20 @ 19:29 by Mitchel Gallegos MD) No pertinent past surgical history Family History Other Cancer Diabetes Hypertension Psychiatric illness Social History Smoking and tobacco status: current every day smoker Alcohol intake: never Vitals/I&O/Wt Last Vital Signs Temp 98.2 F 06/21/20 11:51 Pulse 88 06/21/20 11:51 Resp 18 06/21/20 11:51 BP 118/76 06/21/20 11:51 Pulse Ox 98 06/21/20 11:51 06/20/20 06/21/20 06/21/20 22:59 06:59 14:59 Intake Total 100 / 1203.75 1047.5 / 2251.25 Output Total 800 / 1400 Balance -700 / -196.25 1047.5 / 851.25 Physical Exam Narrative: EXAM NARRATIVE: General: Alert, awake, mild distress due to abdominal pain HEENT: Grossly unremarkable CVS : NSR CHEST : Non-labored respiration ABD : Generalized tenderness to palpation : Deferred Ext : No edema A&P Assessment and plan (1) Left tubo-ovarian abscess: 30-year-old female G2, P2, with abdominal pain. Seen in the emergency room and diagnosed with left tubo-ovarian abscess. Treated with triple antibiotic for 48 hours, without improvement of symptoms and resolution of left complex adnexal mass. Patient still symptomatic with abdominal pain. Agnostic laparoscopy with possible left salpingectomy recommended. Patient was counseled regarding the procedure, risks and complications. She agreed. Status: Acute Consult Attestations Medical Necessity Statement: In my professional opinion per admitting diagnosis Coding Level of Care Code Acute Commander Internal Affairs for [facility] Diagnoses Left tubo-ovarian abscess N70.93
--- NOTE | 2020-06-21 12:14 | PM.PN ---
Subjective Subjective: Interval history: Patient continued to have abdominal pain and nausea overnight. Medications: Reviewed: Yes Vitals/I&O/Wt Last Vital Signs Temp 98.2 F 06/21/20 11:51 Pulse 88 06/21/20 11:51 Resp 18 06/21/20 11:51 BP 118/76 06/21/20 11:51 Pulse Ox 98 06/21/20 11:51 06/20/20 06/21/20 06/21/20 22:59 06:59 14:59 Intake Total 100 / 1203.75 1047.5 / 2251.25 Output Total 800 / 1400 Balance -700 / -196.25 1047.5 / 851.25 Physical Exam Narrative: EXAM NARRATIVE: General: Alert, awake, No apparent distress HEENT: Grossly unremarkable CVS : NSR CHEST : Non-labored respiration ABD : Generalized tenderness to palpation : Defer to PROVIDER RELATIONS REP/ER examination Ext : No edema Data : 06/21/20 04:21 06/21/20 04:21 A&P Assessment and plan (1) Left tubo-ovarian abscess: Status: Acute (2) Depression with anxiety: Status: Chronic Sepsis due to Left TOA - Denied prior electron microprobe operator infections including sexually transmitted - Leukocytosis Improved - TV US - > 7.9 x 7.4 x 3.3 cm - Culture taken in ER - As per electron microprobe operator recommendation on abx: - Cefoxitin 2g IV q6hr - Clindamycin 900 mg IV q8hr - Gentamycin - Pharmacy to dose - Pain control - IVF at 75 cc/hr - CBC/CMP in am - Zofran / Reglan PRN for nausea - NPO for OR later this afternoon - Postop care per electron microprobe operator Hypokalemia - K 3.4 - KCL 20 MEQ PO x 1 - BMP in am GI ppx - Protonix 40mg PO daily DVT ppx - Low risk, ambulate - SCDs Attestations Medical Necessity Statement*: will require further hospitalization for management of tubo-ovarian abscess requiring IV antibiotics and OR Time Spent in Patient Care: Greater than 35 minutes (>than 50% of time spent in counselling and/or direct pt care on unit). Coding Level of Care Code Acute Railway Station Manager for Chg Fwd Diagnoses Left tubo-ovarian abscess N70.93 Depression with anxiety F41.8
[2020-06-21] MEDS: fentaNYL 50 mcg/mL INJ 2mL IVP (14:47)
[2020-06-21] MEDS: sodium chloride 0.9% 1,000 ML 30 ML IV (14:47)
--- NOTE | 2020-06-21 18:53 | PM.OP ---
Operative Report Date of procedure: June 21, 2020 Pre-op Diagnosis: Left tubo-ovarian abscess, right ovarian cyst Post-op diagnosis: same Post-op Findings: Left tubo-ovarian abscess, with acute inflammation and multiple omental adhesions Procedure Done: Diagnostic laparoscopy converted to exploratory laparotomy. Lysis of adhesions. Left salpingectomy. Right cystectomy. Partial omentectomy. Pathology: Left fallopian tube. Right ovarian cyst. Omentum biopsy Surgeon: Fuad Colby MD Detasseling Crew Supervisor: Robb Sheth MD Anesthesia: General Estimated blood loss (mL): 100 IV fluids (mL): 1,000 Urine output (mL): 400 Complications: None Findings: The patient has a small anteverted uterus, it is freely mobile. left adnexal tovo-oavian complex, however, not appreciated on the bimanual exam due to body habitus. Laparoscopically, the patient had numerous omental adhesions to the vesicouterine peritoneum in the fundus of the uterus. There were also adhesions to the left fallopian tube and left ovary. There was a moderate amount of pus in the complex. There was a right ovarian cyst. Condition: stable Disposition: PACU Brief History: 30-year-old female G2, P2 with acute abdominal pain, came to the ER, ultrasound and CT scan show left tubo-ovarian complex. Admitted for IV antibiotics for 48 hours. Patient continue to be symptomatic after antibiotic therapy. Procedure: After informed consent, the patient was taken to the operating room where general anesthesia was administered. Pre-Procedure Time-Out verifying the correct patient identity, correct procedure verified with consent, correct site and side, correct patient position, availability of correct implants and any special equipment or requirements was performed and acknowledge by the OR team. She was placed in the dorsal lithotomy position and prepped and draped in sterile fashion. The patient was examined under anesthesia and found to have a normal uterus with normal adnexa. A Mahoney catheter was placed in the bladder. An open side speculum was placed in the vagina, and the anterior lip of cervix was grasped with the single toothed tenaculum. A uterine manipulator was advanced into the endocervical. Tenaculum was removed after uterine manipulator was secured. The speculum was removed from the vagina. The attention was brought to abdomen after changing gloves. The base of the umbilicus was grasped with an Allis clamp and with 2 towel clamp bilaterally tenting up the umbilicus an intraumbilical incision was made with a scalpel. While tenting up on the abdomen, a Verres needle with sleeve was admitted into the intra-abdominal cavity. A saline drop test was performed and noted to be within normal limits. Pneumoperitoneum was attained with 4 liters of carbon dioxide. The gas was seen to flow freely with normal resistance, so the CO2 gas was advanced to a higher setting. The abdomen was insufflated to an adequate distension. Once an adequate distention was reached, the Verres needle was removed. Then a 5mm trocar was placed. The introducer was removed and the trocar was connected to the CO2 gas and a camera was inserted. Next, a 1 cm incision was made in the midline approximately two fingerbreadths below the pubic symphysis after transilluminating with the camera. A 5mm trocar was inserted through this incision under direct visualization. Next a 5mm port was placed approximately five fingerbreadths to the left of the umbilicus in a similar fashion. The laparoscopic manipulator/dissector was inserted through the suprapubic port and this was used to try to dissect the omental adhesions bluntly from the vesicouterine peritoneum and the left fallopian tube but with encountered dense adhesion and limited visability the descision was made to convert to open surgery. Then a Pfannenstiel skin incision was made with the scalpel and carried through to the underlying layer of fascia with the Bovie. The fascia was nicked in the midline and the incision extended laterally with the Blanchard scissors. The superior aspect of the fascial incision was then grasped with Harvinder clamps and elevated and the underlying rectus muscle dissected off bluntly. Attention was then turned to the inferior aspect of the incision which, in similar fashion, was grasped and tented up with Harvinder clamps and the rectus muscle dissected bluntly. The rectus muscles were then in the midline and the peritoneum identified, tented up and entered sharply with Metzenbaum scissors. The peritoneal incision was then extended superiorly and inferiorly with good visualization of the bladder. The Ck O retractor was then inserted. The omental adhesions were lysed and bluntly dissected off the vesicouterine space, left lateral ovarian fosa and left adnexa, moderate amount of pus was encountered. The left fallopian tube hydrosalpinx and mesosalpinx were grasped and the underlying mesosalpinx was cauterized and cut using the Enseal X1 tissue sealer device. Serial cauterization and cutting was used to separate the fallopian tube from the underlying mesosalpinx until it could be amputated cutting it approximated 2 cm from the cornua. Excellent hemostasis was noted. Then the enlarge right ovary with cyst approximately 6cm was noted. The suspensory ligament of the right ovary was anchored with a Brittany clamp. The ovarian capsule was incised with the scalpel near the base of the cyst. With tissue forceps the ovarian capsule was elevated with small Metzenbaum scissors the alveolar tissue between the cyst and the ovarian capsule was dissected while the margins of the capsule were held with Allis clamps. The ovarian cyst was completely dissected via hydrodissection. Hemostasis within the bed of the ovary was a control by electrocoagulation of small bleeders. Then a dense thick section of the omentum approximately 6 cm in width was excised with the Ensael tissue sealer device for pathology. Pelvic cavity was copiously irrigated. A suction bulb drainage was placed through the left trocar incision. The rectus muscles were approximated with 1 Vicryl suture. The fascia was reapproximated with 0 Vicryl in an interrupted running fashion. The adipose layer was reaproximated with 1-Vicryl suture. The skin was closed with Insorb?s subcuticular absorbable shae. Then the incision site was infiltrated with Exparel for pain management. The patient tolerated the procedure well. The sponge, lap and needle counts were correct times three.
--- NOTE | 2020-06-21 19:25 | ANE.PACU2 ---
Inpatient post-anesthesia follow up: Airway intact: Yes Vital signs: Temperature 97.6 F Pulse Rate [Left] 100 Pulse Rate 77 Respiratory Rate 18 Blood Pressure [Le ft Arm] 115/80 Blood Pressure 147/80 Pulse Oximetry 100 Oxygen Delivery Me thod Room Air Oxygen Flow Rate Fraction of Inspir ed Oxygen Hydration adequate: Yes Nausea and vomiting: No Pain level: 3 Mental status: Baseline
[2020-06-21] MEDS: HYDROmorphone 1 mg/mL INJ 1 mL 0.25 MG IVP (19:57)
[2020-06-21] MEDS: HYDROcodone-acetaminophen 5-325 mg Tablet PO (20:18)
[2020-06-21] MEDS: dextrose 5%-lactated ringers 1,000 ML 125 ML IV (21:55)
[2020-06-22] VITALS (8 sets, daily range): BP systolic 101–149; BP diastolic 66–81; PULSE 69–88; RESP 12–20; TEMP 36.3–37.2; O2SAT 95–98
[2020-06-22] MEDS: clindamycin 900 MG/50 ML PREMIX 100 MG IV ×3 (01:43→20:43)
[2020-06-22] MEDS: ketorolac 30 mg/mL INJ IVP ×3 (01:43→14:07)
[2020-06-22] MEDS: dextrose 5%-lactated ringers 1,000 ML 125 ML IV ×2 (03:55→16:00)
[2020-06-22] MEDS: ceFOXitin 2,000 MG in sodium chloride 0.9% (plus) 50 ML 100 MG IV ×3 (05:06→20:06)
[2020-06-22] MEDS: ondansetron 2 mg/ML SDV 2 mL 4 MG IVP ×3 (05:21→20:08)
[2020-06-22] MEDS: HYDROcodone-acetaminophen 5-325 mg Tablet PO ×3 (05:21→20:07)
[2020-06-22 08:02] LABS: Hematocrit 31.5 % (37.0-47.0); Hemoglobin 10.2 g/dL (11.5-15.3); Mean Corpuscular HGB Conc 32.4 g/dL (30.0-36.0); Mean Corpuscular Hemoglobin 29.8 pg (28.0-34.0); Mean Corpuscular Volume 92.1 fL (81-99); Mean Platelet Volume 9.6 fL (7.4-10.4); Platelet Count 365 10^3/cmm (130-400); Red Blood Count 3.42 10^6/uL (4.1-5.3); Red Cell Distribution Width 12.2 % (12.1-15.1); White Blood Count 11.2 10^3/uL (4.0-10.0)
--- NOTE | 2020-06-22 08:53 | P.PN_ITS ---
Subjective Subjective: Interval history: Tender at incision site but feeling OK. Vitals/I&O/Wt Last Vital Signs Temp 98.0 F 06/22/20 04:51 Pulse 69 06/22/20 04:51 Resp 18 06/22/20 04:51 BP 149/80 06/22/20 04:51 Pulse Ox 97 06/22/20 04:51 06/21/20 06/22/20 06/22/20 22:59 06:59 14:59 Intake Total 0 / 50 1012.5 / 1062.5 Output Total 950 / 950 750 / 1700 Balance -950 / -900 262.5 / -637.5 Physical Exam Narrative: EXAM NARRATIVE: GA: Alert and oriented ?3. HEENT: WNL. Heart: Regular rate and rhythm. Lungs: Clear to auscultation bilaterally. Abdomen: Bowel sounds present, nontender, minimal tenderness, incision clean and dry, no redness, pain or edema. HAT LINING PASTER: spotting. Extremities: No edema, no cyanosis, no calves pain. Urinary Catheter Management^: f: Cath Placed During This Visit: yes Urinary Catheter Date of Insertion: 06/21/20 Urinary Catheter Time of Insertion: 17:15 Data : 06/22/20 07:23 06/21/20 04:21 Micro: Microbiology 06/21/20 18:20 Gram Stain - Final Other Source A&P Assessment and plan (1) Left tubo-ovarian abscess: Patient is status post exploratory laparotomy, left salpingectomy, lysis of adhesions, right cystectomy, postoperative day 1. She is afebrile hemodynamically stable. Postop overnight observation uneventful. Will advance diet as tolerated and continue postop observation. Will be discontinued drain this afternoon. Status: Acute Attestations Medical Necessity Statement*: In my professional opinion per admitting diagnosis Coding Level of Care Code Acute Sheeter Machine Operator for [facility] Diagnoses Left tubo-ovarian abscess N70.93
[2020-06-22] MEDS: acetaminophen 325 mg Tablet PO ×2 (10:39→22:41)
[2020-06-22] MEDS: docusate sodium 100 mg Capsule PO ×2 (10:39→20:07)
--- NOTE | 2020-06-22 13:53 | PM.PN ---
Subjective Subjective: Interval history: Doing well post op, noted flatulence, no bm Noted Constipation Medications: Reviewed: Yes Vitals/I&O/Wt Last Vital Signs Temp 98.9 F 06/22/20 11:56 Pulse 73 06/22/20 11:56 Resp 20 H 06/22/20 11:56 BP 101/66 06/22/20 11:56 Pulse Ox 95 06/22/20 11:56 06/21/20 06/22/20 06/22/20 22:59 06:59 14:59 Intake Total 0 / 50 1012.5 / 1062.5 Output Total 950 / 950 750 / 1700 Balance -950 / -900 262.5 / -637.5 Physical Exam Narrative: EXAM NARRATIVE: General: Alert, awake, No apparent distress HEENT: Grossly unremarkable CVS : NSR CHEST : Non-labored respiration ABD : Generalized tenderness to palpation : Defer to SMALL BATTERY PLATE ASSEMBLER/ER examination Ext : No edema Urinary Catheter Management^: f: Cath Placed During This Visit: yes Urinary Catheter Date of Insertion: 06/21/20 Urinary Catheter Time of Insertion: 17:15 Data : 06/22/20 07:23 06/21/20 04:21 Micro: Microbiology 06/21/20 18:20 Gram Stain - Final Other Source A&P Assessment and plan (1) Left tubo-ovarian abscess: Status: Acute (2) Depression with anxiety: Status: Chronic Sepsis due to Left TOA - TV US - > 7.9 x 7.4 x 3.3 cm - As per it service continuity supervisor recommendation on abx: - Cefoxitin 2g IV q6hr - Clindamycin 900 mg IV q8hr - Gentamycin - Pharmacy to dose - Pain control - Bowel regimen - POD 1: S/P laparotomy, left salpingectomy, lysis of adhesions, right cystectomy - Post op management per it service continuity supervisor - Defer d.c abx to it service continuity supervisor Constipation - Miralax 17g po x 1 Hypokalemia - BMP in am GI ppx - Protonix 40mg PO daily DVT ppx - Low risk, ambulate - SCDs Attestations Medical Necessity Statement*: Continue hospital stay for iv abx and post op management. Anticipate discharge in 1 day Time Spent in Patient Care: Greater than 35 minutes (>than 50% of time spent in counselling and/or direct pt care on unit). Coding Level of Care Code Acute Soldering Technician for [facility] Fwd Diagnoses Left tubo-ovarian abscess N70.93 Depression with anxiety F41.8
[2020-06-22] MEDS: ibuprofen 800 mg tablet PO (20:06)
[2020-06-22] MEDS: polyethylene glycol 3350 Pkt 17 gm PO (20:08)
[2020-06-22] MEDS: nicotine 21 mg Patch 1 PATCH TRANSDERMA (20:26)
[2020-06-23] VITALS: BP 118/74; PULSE 75; RESP 20; TEMP 36.9; O2SAT 95
[2020-06-23] MEDS: clindamycin 900 MG/50 ML PREMIX 100 MG IV ×2 (01:48→10:17)
[2020-06-23] MEDS: HYDROcodone-acetaminophen 5-325 mg Tablet PO ×2 (01:48→07:17)
[2020-06-23] MEDS: dextrose 5%-lactated ringers 1,000 ML 125 ML IV (01:53)
[2020-06-23] MEDS: ondansetron 2 mg/ML SDV 2 mL 4 MG IVP ×2 (02:10→08:54)
[2020-06-23] MEDS: ceFOXitin 2,000 MG in sodium chloride 0.9% (plus) 50 ML 100 MG IV ×2 (02:35→08:53)
[2020-06-23] MEDS: ibuprofen 800 mg tablet PO ×2 (03:23→12:42)
[2020-06-23 04:30] VITALS: BP 120/76; PULSE 72; RESP 20; TEMP 36.6; O2SAT 97
[2020-06-23] MEDS: docusate sodium 100 mg Capsule PO (09:08)
[2020-06-23] MEDS: nicotine 21 mg Patch 1 PATCH TRANSDERMA (09:08)
[2020-06-23 11:15] VITALS: RESP 18
[2020-06-23] MEDS: morphine 4 mg/mL SDV 1 mL 1 MG IVP (11:15)
--- NOTE | 2020-06-23 11:19 | PM.OBGYDC ---
Discharge Providers SANDING MACHINE OPERATOR Date of Admission: 06/18/20 16:29 Date of Discharge: 06/23/20 Attending Provider at Admission: Mitchel Gallegos Attending Provider at Discharge: Fuad Colby MD Primary Care Provider: ARUNA Garza Diagnoses at Discharge Discharge Diagnosis (1) Left tubo-ovarian abscess: Status: Acute (2) Depression with anxiety: Status: Chronic Reason for Visit Reason for Visit: SEVERE AB PAIN Hospital Course Hospital Course 30-year-old female G2, P2, came to the emergency room with a chief complaint of acute abdominal pain. On evaluation with CT and ultrasound a tubo-ovarian abscess was suspected. She was admitted for IV antibiotics for 48 hours. After 48 hours of IV antibiotics the patient continue with abdominal pain, and ultrasound was repeated no improvement was noted. Patient was taken to the OR for diagnostic laparoscopy with possible left salpingectomy. During the diagnostic laparoscopy, due to dense adhesions and poor visibility was converted to exploratory laparotomy, and a left salpingectomy, lysis of adhesions with right cystectomy was performed without complications. Postop observation was uneventful. She is afebrile and hemodynamically stable. Tolerating diet well, ambulating without difficulty, passing flatus. Bulb suction drainage was discontinued. She will be discharged home with p.o. antibiotics with doxycycline 100 twice daily for 14 days and Flagyl 500 mg twice daily for 14 days. Physical Exam Narrative: EXAM NARRATIVE: GA: Alert and oriented ?3. HEENT: WNL. Heart: Regular rate and rhythm. Lungs: Clear to auscultation bilaterally. Abdomen: Bowel sounds present, nontender, minimal tenderness, incision clean and dry, no redness, pain or edema. Bulb suction drainage discontinue, left lower quadrant incision site drainage incision closed with exofin adhesive. INTEGRITY ASSESSOR: No bleeding. Extremities: No edema, no cyanosis, no calves pain. Urinary Catheter Management^: f: Cath Placed During This Visit: yes Urinary Catheter Date of Insertion: 06/21/20 Urinary Catheter Time of Insertion: 17:15 Discharge Data Data Completed and Pending: Completed Studies During Hospitalization Category Date Time Status CT abdomen pelvis w con* [id number] Urge nt Cat Scan 06/18/20 13:04 Completed US transvaginal 7 5730 Routine Ultrasound 06/21/20 07:08 Completed US transvaginal 7 6830 Urgent Ultrasound 06/18/20 13:04 Completed Pending at discharge Category Date Time Status Anaerobic Culture Routine Lab 06/21/20 18:20 Results Wound Culture and Gram Stain Routin e Lab 06/21/20 18:20 Results Pathology: Surgic al [PTH] Routine Pth 06/21/20 18:55 Received Vitals: Last Vital Signs Temp 97.8 F 06/23/20 04:30 Pulse 72 06/23/20 04:30 Resp 18 06/23/20 11:15 BP 120/76 06/23/20 04:30 Pulse Ox 97 06/23/20 04:30 Discharge Plan Discharge Patient Disposition: Home Condition: Stable Prescriptions: New hydrocodone-acetaminophen [[place]] 5-325 mg tablet 1 tab PO Q4H PRN (Reason: pain) Qty: 30 RF: 0 doxycycline monohydrate 100 mg capsule 100 mg PO BID 14 Days Qty: 28 RF: 0 ferrous sulfate 325 mg (65 mg iron) tablet 325 mg PO BID Qty: 60 RF: 0 ibuprofen 800 mg tablet 800 mg PO TID PRN (Reason: pain) Qty: 60 RF: 0 metronidazole [Flagyl] 500 mg tablet 500 mg PO BID 14 Days Qty: 28 RF: 0 Continued Tylenol 325 mg Tablet 325 mg PO QID PRN (Reason: Pain) RF: 0 Discharge Orders: Discharge Order (Routine); Ordered 06/23/20 Ordered By: Fuad Colby Referrals: KAILEE Hough FNP [Primary Care Provider] - Fuad Colby MD [Physician] - 2 weeks Discharge Diet: Regular Discharge Activity: Increase activity as tolerated Patient Instructions: Exploratory Laparotomy (DC) Activity Restrictions/Additional Instructions: 1. Please call [facility] on next working day to make your post-operative appointment in 2 weeks. 2. Please stay home until you come back to the clinic on first post-operative check up. 3. Please follow instructions on your medications CAREFULLY. 4. If you have abdominal incision, do not cover it unless dressing is necessary because of drainage. OK to shower, but avoid bath. Leave steri-strips until they fall off. If they are still on one week after surgery, you may remove them. 5. If you had vaginal surgery, your doctor may instruct you to take SITZ bath. 6. Yellow, blood tinged odorous vaginal discharge is usually normal after hysterectomy or vaginal surgeries. 7. No sexual intercourse, tampons, or douches until you are completely released from the post-operative care. 8. Avoid constipation by eating right and maybe using some Metamucil or Milk of Magnesia. 9. All prescription refills are given during the working hours. Please do no wait till it runs out. Call the clinic at [phone] before your medication runs out. The clinic will get in touch with your doctor to prescribe medications if necessary. 10. Please remain within 40 mile radius from our hospital because emergencies do happen now and then during the post-operative period. 11. If you have stairs at home, take one step at a time slowly and minimize the number of trips. It helps to stay in one floor for the next few days. No lifting except what you can lift by one hand until you are released from the post-operative care. 12. Driving is discouraged until you are well healed. It may be 3-4 weeks before you feel strong enough to drive. You should be able to turn and look through the rear window without pain and you should be able to push the brake pedal very hard without pain before you drive. No fast rules, but SAFETY should be your primary concern. DO NOT drive if you are on sedating medications such as narcotics. 13. Call the clinic (during working hours) to make urgent appointment or go to the Emergency room, if any of the following occurs: i. Vaginal bleeding becomes heavy, more than a period. ii. Incision becomes red and sore, or drains pus. iii. Your temperature is over 100.4 or you have chill. iv. IV site becomes red and swollen (a little ``knot?? is usually OK) v. Persistent nausea and vomiting vi. Persistent constipation or diarrhea vii. Rash or allergic reaction to medications. Discharge Attestations SANDING MACHINE OPERATOR Time Spent in Discharge Care*: greater than 30 min Coding Level of Care Code Acute Accounting Specialist for Ch[facility] Fwd Diagnoses Left tubo-ovarian abscess N70.93 Depression with anxiety F41.8
[2020-06-23 12:52] VITALS: BP 113/75; PULSE 85; RESP 20; TEMP 36.7; O2SAT 97
[2020-06-23] MEDS: acetaminophen 325 mg Tablet PO (14:10)
--- NOTE | 2020-06-23 15:05 | PC.NURSE ---
pt iv taken out and intact. pt discharge instructions explained and questions answered. abdominal binder brought up for pt. pt taken to surgical services exit via wheelchair with .
[2020-06-23 15:06] VITALS: BP 113/75; PULSE 85; RESP 20; TEMP 36.7; O2SAT 97
--- NOTE | 2020-06-23 17:22 | P.PN_ITS ---
Subjective Subjective: Interval history: Patient was doing well postop care was discussed with hot top liner helper. Stable for discharge today. Medications: Reviewed: Yes Vitals/I&O/Wt Last Vital Signs Temp 98.0 F 06/23/20 15:06 Pulse 85 06/23/20 15:06 Resp 20 H 06/23/20 15:06 BP 113/75 06/23/20 15:06 Pulse Ox 97 06/23/20 15:06 06/23/20 06/23/20 06/23/20 06:59 14:59 22:59 Intake Total 1830 / 3570 720 / 720 1212.5 / 1932.5 Output Total 220 / 220 Balance 1610 / 3350 720 / 720 1212.5 / 1932.5 Physical Exam Narrative: EXAM NARRATIVE: General: Alert, awake, No apparent distress HEENT: Grossly unremarkable CVS : NSR CHEST : Non-labored respiration ABD : Postop : Defer to CHROME WORKER/ER examination Ext : No edema Urinary Catheter Management^: f: Cath Placed During This Visit: yes Urinary Catheter Date of Insertion: 06/21/20 Urinary Catheter Time of Insertion: 17:15 Data : 06/22/20 07:23 06/21/20 04:21 Micro: Microbiology 06/21/20 18:20 Gram Stain - Final Other Source Wound Culture - Preliminary A&P Assessment and plan (1) Left tubo-ovarian abscess: Status: Acute (2) Depression with anxiety: Status: Chronic Sepsis due to Left TOA - TV US - > 7.9 x 7.4 x 3.3 cm - As per hot top liner helper recommendation on abx: - Cefoxitin 2g IV q6hr - Clindamycin 900 mg IV q8hr - Gentamycin - Pharmacy to dose - Pain control - Bowel regimen - POD: S/P laparotomy, left salpingectomy, lysis of adhesions, right cystectomy - Post op management per hot top liner helper - Defer d.c abx to hot top liner helper Constipation - Miralax 17g po x 1 Hypokalemia - BMP in am GI ppx - Protonix 40mg PO daily DVT ppx - Low risk, ambulate - SCDs Disposition Patient is cleared from medical standpoint for discharge. Defer to primary hot top liner helper. Attestations Medical Necessity Statement*: Discharge Time Spent in Patient Care: Greater than 35 minutes (>than 50% of time spent in counselling and/or direct pt care on unit) . Coding Level of Care Code Acute Buckle Sewer Machine for Chg Fwd Diagnoses Left tubo-ovarian abscess N70.93 Depression with anxiety F41.8
== END 2020-06-23 14:00 | disposition home or self-care (01) | DRG 743 ==
LOC: ER 17:08 → MEDSURG 18:21
PROVIDERS: Hospitalist; Physician Assistant; Admitting Provider Hospitalist; Emergency Provider Family Medicine; PCP Nurse Practitioner Family; Visit Provider Obstetrics & Gynecology
PROC: 0UJ80ZZ Inspection of Fallopian Tube, Open Approach (ICD-10-PCS; CPT 58661; 2020-06-21 14:00)
PROC: 0UJ80ZZ Inspection of Fallopian Tube, Open Approach (ICD-10-PCS; CPT 58700; 2020-06-21 14:00)
DX: A18.17 Tuberculous female pelvic inflammatory disease (principal); F41.8 Other specified anxiety disorders; K66.0 Peritoneal adhesions (postprocedural) (postinfection); K59.00 Constipation, unspecified; E87.6 Hypokalemia; Z53.39 Other specified procedure converted to open procedure
CPT/HCPCS: 12345; 36415; 74177; 76830; 80053; 80170; 81003; 83605; 83690; 83735; 84703; 85025; 85027; 87070; 87075; 87205; 87210; 88302; 88305; 99283; C9290; E0352; J0131; J0330; J0694; J1170; J1200; J1580; J1885; J2250; J2270; J2405; J2704; J2710; J2765; J3010; J3490; J7030; Q9967

== ENCOUNTER 2020-10-09 17:48 | Observation (INO) | payer SELFPAY ==
[2020-10-09 17:55] VITALS: BP 113/72; PULSE 71; RESP 16; TEMP 37; O2SAT 97; BMI 52.4
--- NOTE | 2020-10-09 18:07 | CTR_ITS ---
PROCEDURE INFORMATION: Exam: CT Abdomen And Pelvis With Contrast Exam date and time: 10/09/2020 7:02 PM Age: 30 years old Clinical indication: Abdominal pain; Localized; Left lower quadrant (llq); Prior surgery; Surgery type: Left fallopian tube; Additional info: Abd pain TECHNIQUE: Imaging protocol: Computed tomography of the abdomen and pelvis with contrast. Radiation optimization: All CT scans at this facility use at least one of these dose optimization techniques: automated exposure control; mA and/or kV adjustment per patient size (includes targeted exams where dose is matched to clinical indication); or iterative reconstruction. Contrast material: OMNI 300; Contrast volume: 95 ml; Contrast route: INTRAVENOUS (IV); COMPARISON: 1. CT abdomen pelvis w con* [id number] 06/18/2020 1:25 PM 2. US transvaginal [id number] 06/21/2020 10:31:21 AM 3. US transvaginal [id number] 06/18/2020 1:48:45 PM RADIATION DOSE METRICS: Total DLP (mGy-cm): 1696.9 FINDINGS: Liver: Normal. No mass. Gallbladder and bile ducts: Normal. No calcified stones. No ductal dilation. Pancreas: Normal. No ductal dilation. Spleen: Normal. No splenomegaly. Adrenal glands: Normal. No mass. Kidneys and ureters: Normal. No hydronephrosis. Stomach and bowel: Unremarkable. No obstruction. No mucosal thickening. Appendix: No evidence of appendicitis. Intraperitoneal space: Unremarkable. No free air. No significant fluid collection. Vasculature: Unremarkable. No abdominal aortic aneurysm. Lymph nodes: Unremarkable. No enlarged lymph nodes. Urinary bladder: Unremarkable as visualized. Reproductive: Cystic changes of left adnexa. Collection of cystic structures spans about 6 cm x 6.5 cm x 5 1 cm. Normal uterus. Normal right adnexa. Bones/joints: Unremarkable. No acute fracture. Soft tissues: Unremarkable abdominal wall. CT/CT abdomen pelvis w con* [id number] IMPRESSION: Left adnexa cystic mass is nonspecific. Possibly ovarian origin. Correlate with any prior surgical history. Dilation of left fallopian tube another consideration if patient retained tube. Recommend correlation with transabdominal and transvaginal pelvic ultrasound. Radiation Dose CTDIVOL = (mGy): DLP = 1696.9 (mGy-cm)
--- NOTE | 2020-10-09 18:18 | ED_ITS ---
HPI - Abdominal Pain General: Chief Complaint: Abdominal Pain Stated Complaint: Lower Left ABD Pain/Post Surgery Related Time Seen by Provider: 10/09/20 17:54 Source: patient Mode of arrival: ambulatory Limitations: no limitations History of Present Illness: HPI narrative: 30-year-old female states been having left lower quadrant abdominal pain she states that she did have a tubo- ovarian abscess in July on that left side had surgically removed. States that she having pain again 2 weeks ago it felt like the same pain. States pain is sharp and constant nature. She rates it a 6 out of 10. Denies any vomiting or diarrhea. Denies any fevers. She denies any worsening or improving factors. MD elicited complaint: abdominal pain Associated Symptoms: Denies chills, diarrhea, dysuria, fever(s), nausea and vomiting Related Data: Date of Last Menstrual Period: 08/16/20 Review of Systems Const: Denies: fever(s), chills, body aches or change in appetite Eyes: Denies: blurry vision or eye discomfort ENMT: Denies: throat pain or dental pain Card: Denies: chest pain Resp: Denies: dyspnea GI: Denies: abdominal pain, nausea, vomiting or diarrhea : Denies: dysuria Musc: Denies: neck pain or back pain Skin/Breast: Denies: rash Neuro: Denies: headache(s) Psych: Denies: depression Roc/Lymph: Denies: easy bruising All/Imm: Denies: urticaria PFSH ED PFSH: Medical History Depression with anxiety Surgical History No pertinent past surgical history Family History Grandmother Cancer, Onset Age: 40 Maternal, skin cancer Grandfather Chronic kidney disease (CKD), Onset Age: 40 maternal Family/Other Diabetes paternal aunt Hypertension maternal aunt Mother Hypertension Denies family history of Colon cancer Ovarian cancer Clotting disorder Heart disease Hyperlipidemia Psychiatric illness Breast cancer Anesthesia complication Bleeding disorder Uterine cancer Thyroid condition Stroke Social History Smoking and tobacco status: current every day smoker Alcohol intake: never Female Reproductive History: Date of last menstrual period: 08/16/20 Physical Exam Const: COMMON NORMALS: no acute distress, patient oriented x3 and healthy appearing HENMT: COMMON NORMALS: normocephalic and atraumatic HEAD & SCALP: normocephalic and atraumatic Eye: COMMON NORMALS: Equal, round and reactive pupils present and EOMs intact bilaterally PUPIL: Yes Equal, round and reactive pupils present Neck/C-Spine: COMMON NORMALS: full ROM and supple Chest: COMMONS NORMALS: normal inspection of the chest and normal palpation of entire chest wall Resp: COMMON NORMALS: normal respiratory effort, No retractions, No use of accessory muscles and clear to auscultation bilaterally AUSCULTATION: clear to auscultation bilaterally Cardio: COMMON NORMALS: regular rate, regular rhythm and No murmurs present (Cardio) RATE: regular rate RHYTHM: regular rhythm GI: COMMON NORMALS: Normal to inspection, nondistended, normoactive bowel sounds present, Soft to palpation and no masses PALPATION: Yes Soft to palpation and Yes Tenderness to palpation present (GI) Details: LLQ Extremity: COMMON NORMALS: normal to inspection and full ROM Neuro: COMMON NORMALS: patient oriented x3, moves all extremities and no focal motor deficits Psych: COMMON NORMALS: mental status grossly normal, Normal thought process present and cooperative THOUGHT PROCESS: Normal thought process present Skin: COMMON NORMALS: no rashes or lesions noted and no wounds GENERAL SKIN EXAM: no rashes or lesions noted Course Vital Signs: Vital signs: Vital Signs Temperature 98.0 F 10/09/20 19:45 Pulse Rate 57 L 10/09/20 19:45 Respiratory Rate 18 10/09/20 19:48 Blood Pressure 100/55 10/09/20 19:45 Pulse Oximetry 97 10/09/20 19:45 MDM - Abdominal Pain MDM Narrative: Medical decision making narrative: Patient presents here with abdominal pain does have a history of TOA with surgery in the past. Ultrasound here shows a hemorrhagic cyst. She has had a multiple doses of pain meds due to pain. She has no signs of torsion or abscess or infection at this time. I did speak to OB on-call and will admit for observation. Patient has been stable while here. Lab Data: Labs: Lab Results 10/09/20 10/09/20 10/09/20 Range/Units 18:35 18:35 18:35 WBC 8.4 (4.0-10.0) 10^3/ uL RBC 3.96 L (4.1-5.3) 10^6/u L Hgb 12.3 (11.5-15.3) g/dL Hct 37.5 (37.0-47.0) % MCV 94.7 (81-99) fL MCH 31.1 (28.0-34.0) pg MCHC 32.8 (30.0-36.0) g/dL RDW 12.6 (12.1-15.1) % Plt Count 301 (130-400) 10^3/c mm MPV 10.2 (7.4-10.4) fL Neut % (Auto) 50.5 % Lymph % (Auto) 37.0 % [place] % (Auto) 8.1 % Eos % (Auto) 3.7 % Baso % (Auto) 0.5 % Neut # (Auto) 4.25 (1.8-7.7) 10^3/u L Lymph # (Auto) 3.1 (0.8-4.8) 10^3/u L [place] # (Auto) 0.7 (0.2-0.9) 10^3/u L Eos # (Auto) 0.3 (0.0-0.8) 10^3/u L Baso # (Auto) 0.0 (0.0-0.1) 10^3/u L Nucleated RBC % (a uto) 0 % Nucleated RBCs # 0.0 /100WBC Sodium 138 (136-145) mmol/L Potassium 4.1 (3.5-5.1) mmol/L Chloride 104 (98-107) mmol/L Carbon Dioxide 26 (22-29) mmol/L Anion Gap 12.1 (5-19) BUN 9 (6-20) mg/dL Creatinine 0.7 (0.5-0.9) mg/dL GFR Calculation 99.6 (90-130) mL/min Glucose 88 (65-115) mg/dL Calculated Osmolal ity 284 L (285-295) mOsm/k g Calcium 8.5 (8.5-10.5) mg/dL Total Bilirubin 0.2 (0.15-1.2) mg/dL AST 22 (0-32) U/L ALT 23 (0-33) U/L Alkaline Phosphata se 84 (35-105) IU/L Total Protein 6.8 (6.6-8.7) g/dL Albumin 4.1 (3.5-5.2) g/dL Globulin 2.7 (1.3-4.6) g/dL Lipase 28 (13-60) U/L HCG, Qual Negative (Negative) Urine Color (Yellow) Urine Appearance (CLEAR) Urine pH (5-7) Ur Specific Gravit y (1.005-1.030) Urine Protein (Negative) Urine Glucose (UA) (Normal) Urine Ketones (Negative) Urine Blood (Negative) Urine Nitrate (Negative) Urine Bilirubin (Negative) Urine Urobilinogen (Negative) mg/dL Ur Leukocyte Darlene ase (Negative) Urine RBC (0-2) /hpf Urine WBC (0-5) /hpf Ur Squamous Epith Cells (0-5) /hpf Amorphous Sediment /hpf Urine Bacteria (NONE) /hpf 10/09/20 Range/Units 18:35 WBC (4.0-10.0) 10^3/ uL RBC (4.1-5.3) 10^6/u L Hgb (11.5-15.3) g/dL Hct (37.0-47.0) % MCV (81-99) fL MCH (28.0-34.0) pg MCHC (30.0-36.0) g/dL RDW (12.1-15.1) % Plt Count (130-400) 10^3/c mm MPV (7.4-10.4) fL Neut % (Auto) % Lymph % (Auto) % [place] % (Auto) % Eos % (Auto) % Baso % (Auto) % Neut # (Auto) (1.8-7.7) 10^3/u L Lymph # (Auto) (0.8-4.8) 10^3/u L [place] # (Auto) (0.2-0.9) 10^3/u L Eos # (Auto) (0.0-0.8) 10^3/u L Baso # (Auto) (0.0-0.1) 10^3/u L Nucleated RBC % (a uto) % Nucleated RBCs # /100WBC Sodium (136-145) mmol/L Potassium (3.5-5.1) mmol/L Chloride (98-107) mmol/L Carbon Dioxide (22-29) mmol/L Anion Gap (5-19) BUN (6-20) mg/dL Creatinine (0.5-0.9) mg/dL GFR Calculation (90-130) mL/min Glucose (65-115) mg/dL Calculated Osmolal ity (285-295) mOsm/k g Calcium (8.5-10.5) mg/dL Total Bilirubin (0.15-1.2) mg/dL AST (0-32) U/L ALT (0-33) U/L Alkaline Phosphata se (35-105) IU/L Total Protein (6.6-8.7) g/dL Albumin (3.5-5.2) g/dL Globulin (1.3-4.6) g/dL Lipase (13-60) U/L HCG, Qual (Negative) Urine Color Yellow (Yellow) Urine Appearance Clear (CLEAR) Urine pH 7 (5-7) Ur Specific Gravit y 1.005 (1.005-1.030) Urine Protein Neg (Negative) Urine Glucose (UA) Norm (Normal) Urine Ketones Negative (Negative) Urine Blood Neg (Negative) Urine Nitrate Negative (Negative) Urine Bilirubin Neg (Negative) Urine Urobilinogen Norm (Negative) mg/dL Ur Leukocyte Darlene ase Trace H (Negative) Urine RBC 0-4 H (0-2) /hpf Urine WBC 0-4 H (0-5) /hpf Ur Squamous Epith Cells 0-4 H (0-5) /hpf Amorphous Sediment 1+ /hpf Urine Bacteria Trace (NONE) /hpf Imaging Data ^: CT Abd/Pel: Radiologist's impression: [address] [place] [address] CT Scan Report Signed Patient: Chela Sandoval Unit #: [id number] : 1990 Age/Sex: 30 / F ADM Date: 10/09/20 Loc: ER Room/Bed: Attending Dr: Ordering Provider/Ordering MD: Chao Webber MD Date of Service: 10/09/20 Procedure(s): CT abdomen pelvis w con* [id number] Accession Number(s): [id number] Report Number: [id number] PROCEDURE INFORMATION: Exam: CT Abdomen And Pelvis With Contrast Exam date and time: 10/09/2020 7:02 PM Age: 30 years old Clinical indication: Abdominal pain; Localized; Left lower quadrant (llq); Prior surgery; Surgery type: Left fallopian tube; Additional info: Abd pain TECHNIQUE: Imaging protocol: Computed tomography of the abdomen and pelvis with contrast. Radiation optimization: All CT scans at this facility use at least one of these dose optimization techniques: automated exposure control; mA and/or kV adjustment per patient size (includes targeted exams where dose is matched to clinical indication); or iterative reconstruction. Contrast material: OMNI 300; Contrast volume: 95 ml; Contrast route: INTRAVENOUS (IV); COMPARISON: 1. CT abdomen pelvis w con* [id number] 06/18/2020 1:25 PM 2. US transvaginal [id number] 06/21/2020 10:31:21 AM 3. US transvaginal [id number] 06/18/2020 1:48:45 PM RADIATION DOSE METRICS: Total DLP (mGy-cm): 1696.9 FINDINGS: Liver: Normal. No mass. Gallbladder and bile ducts: Normal. No calcified stones. No ductal dilation. Pancreas: Normal. No ductal dilation. Spleen: Normal. No splenomegaly. Adrenal glands: Normal. No mass. Kidneys and ureters: Normal. No hydronephrosis. Stomach and bowel: Unremarkable. No obstruction. No mucosal thickening. Appendix: No evidence of appendicitis. Intraperitoneal space: Unremarkable. No free air. No significant fluid collection. Vasculature: Unremarkable. No abdominal aortic aneurysm. Lymph nodes: Unremarkable. No enlarged lymph nodes. Urinary bladder: Unremarkable as visualized. Reproductive: Cystic changes of left adnexa. Collection of cystic structures spans about 6 cm x 6.5 cm x 5 1 cm. Normal uterus. Normal right adnexa. Bones/joints: Unremarkable. No acute fracture. Soft tissues: Unremarkable abdominal wall. CT/CT abdomen pelvis w con* [id number] IMPRESSION: Left adnexa cystic mass is nonspecific. Possibly ovarian origin. Correlate with any prior surgical history. Dilation of left fallopian tube another consideration if patient retained tube. Recommend correlation with transabdominal and transvaginal pelvic ultrasound. US: Radiologist's impression: [address] [address] Ultrasound Report Signed Patient: Chela Sandoval Unit #: [id number] : 1990 Age/Sex: 30 / F ADM Date: 10/09/20 Loc: ER Room/Bed: Attending Dr: Ordering Provider/Ordering MD: Chao Webber MD Date of Service: 10/09/20 Procedure(s): US pelvic with transvaginal Accession Number(s): [id number] Report Number: [id number] PROCEDURE INFORMATION: Exam: US Duplex Artery or Vein of the Abdominal and/or Reproductive Organs, Limited Exam date and time: 10/09/2020 8:42 PM Age: 30 years old Clinical indication: Pelvic pain; Prior surgery; Surgery type: Lt tubal abscess; Additional info: Abd pain TECHNIQUE: Imaging protocol: Real-time duplex ultrasound scan of the arterial or venous flow of the abdomen and/or reproductive organs, with color Doppler flow and spectral waveform analysis with image documentation. Exam focused on the region of clinical interest. Duplex images were received to evaluate vascular conditions. COMPARISON: US transvaginal [id number] 06/21/2020 10:31 AM FINDINGS: Ovaries: Right ovarian blood flow pattern is unremarkable on color Doppler analysis. Spectral waveforms are normal. There is color Doppler flow in the left ovarian solid tissue. Spectral waveforms are unremarkable. IMPRESSION: Negative for ovarian torsion. PROCEDURE INFORMATION: Exam: US Pelvis Complete, Transabdominal and US Pelvis, Transvaginal Exam date and time: 10/09/2020 8:42 PM Age: 30 years old Clinical indication: Pelvic pain; Prior surgery; Surgery type: Lt tubal abscess; Additional info: Abd pain TECHNIQUE: Imaging protocol: Real-time transabdominal and transvaginal pelvic ultrasound (complete) with image documentation. Transvaginal imaging was used for better evaluation of the endometrium, adnexa, and/or cervix. COMPARISON: US transvaginal [id number] 06/21/2020 10:31 AM FINDINGS: Uterus/cervix: Anteflexed position of the uterus. Uterine morphology and size is normal. No focal uterine mass. Homogeneous echogenic endometrial complex without thickening. Cervix is unremarkable. Endometrial complex estimated 7 mm thickness. Right adnexa: Right ovary dimensions are normal. Several tiny follicles. Ovarian blood flow is normal on color Doppler and spectral Doppler waveform analysis. Size dimensions of the right ovary estimated 3.1 cm x 1.9 cm x 1.9 cm. Left adnexa: Within the left adnexa multi locular cystic masslike structure. Uncertain if this represents the left ovary with multiple small cysts, with a couple of the locules mildly complicated by internal echogenic debris. Alternatively paraovarian cysts or dilated fallopian tube adjacent the left ovary cannot be excluded. Color Doppler flow is noted at the peripheral aspect of structure as well as unremarkable spectral Doppler waveform imaging. Intraperitoneal space: Trace pelvic free fluid. Urinary bladder: Unremarkable. US/US pelvic with transvaginal IMPRESSION: 1. Negative for ovarian torsion. 2. Multi locular cystic structure of the left adnexa. Correlation with prior surgical history is necessary. This may represent the left ovary with multiple small cysts. Alternatively a dilated fallopian tube adjacent to the left ovary cannot be excluded. 3. Normal right ovary. 4. Normal uterus and endometrium. Discharge Plan Discharge Patient Disposition: Admitted As Inpatient Clinical Impression: Ovarian cyst Abdominal pain Qualifiers: Abdominal location: left lower quadrant Qualified Code(s): R10.32 - Left lower quadrant pain Condition: Stable Coding Level of Care Code ED Draw String Knotter for Alexandriag Fwd Exam Comprehensive
[2020-10-09 18:52] LABS: Basophils % 0.5 %; Eosinophils # 0.3 10^3/uL (0.0-0.8); Eosinophils % 3.7 %; Hematocrit 37.5 % (37.0-47.0); Hemoglobin 12.3 g/dL (11.5-15.3); Lymphocytes # 3.1 10^3/uL (0.8-4.8); Mean Corpuscular HGB Conc 32.8 g/dL (30.0-36.0); Mean Corpuscular Hemoglobin 31.1 pg (28.0-34.0); Mean Corpuscular Volume 94.7 fL (81-99); Mean Platelet Volume 10.2 fL (7.4-10.4); Monocytes # 0.7 10^3/uL (0.2-0.9); Monocytes % 8.1 %; Neutrophils # 4.25 10^3/uL (1.8-7.7); Neutrophils % 50.5 %; Nucleated Red Blood Cells % 0 %; Platelet Count 301 10^3/cmm (130-400); Red Blood Count 3.96 10^6/uL (4.1-5.3); Red Cell Distribution Width 12.6 % (12.1-15.1); White Blood Count 8.4 10^3/uL (4.0-10.0)
[2020-10-09 19:00] LABS: HCG, Serum Qual Negative (Negative)
[2020-10-09 19:12] LABS: Add Urine Microscopic? YES; Amorphous Sediment Urine 1+ /hpf; Bacteria Urine TRACE /hpf; Bilirubin Urine Neg (Negative); Blood Urine Neg (Negative); Glucose Urine UA Norm (Normal); Ketones Urine Negative (Negative); Leukocyte Esterase Urine Trace (Negative); Nitrate Urine Negative (Negative); Protein Urine Neg (Negative); RBC Urine 0-4 /hpf (0-2); Specific Gravity, Urine 1.005 (1.005-1.030); Squamous Epithelial Cell Urine 0-4 /hpf (0-5); Urine Appearance Clear (CLEAR); Urine Color Yellow (Yellow); Urobilinogen Urine Norm (Negative); WBC Urine 0-4 /hpf (0-5); pH Urine 7 (5-7)
[2020-10-09] MEDS: iohexol 300 mg/mL 100 mL Btl IV (19:12)
[2020-10-09 19:14] LABS: Alanine Aminotransferase 23 U/L (0-33); Albumin Level 4.1 g/dL (3.5-5.2); Alkaline Phosphatase 84 IU/L (35-105); Anion Gap 12.1 (5-19); Aspartate Amino Transferase 22 U/L (0-32); Blood Urea Nitrogen 9 mg/dL (6-20); Calcium 8.5 mg/dL (8.5-10.5); Carbon Dioxide 26 mmol/L (22-29); Chloride 104 mmol/L (98-107); Globulin 2.7 g/dL (1.3-4.6); Glomerular Filtration Rate 99.6 mL/min (90-130); Glucose 88 mg/dL (65-115); Lipase 28 U/L (13-60); Osmolality Calculated 284 mOsm/kg (285-295); Potassium 4.1 mmol/L (3.5-5.1); Sodium 138 mmol/L (136-145); Total Bilirubin 0.2 mg/dL (0.15-1.2); Total Protein 6.8 g/dL (6.6-8.7)
--- NOTE | 2020-10-09 19:43 | USR_ITS ---
PROCEDURE INFORMATION: Exam: US Duplex Artery or Vein of the Abdominal and/or Reproductive Organs, Limited Exam date and time: 10/09/2020 8:42 PM Age: 30 years old Clinical indication: Pelvic pain; Prior surgery; Surgery type: Lt tubal abscess; Additional info: Abd pain TECHNIQUE: Imaging protocol: Real-time duplex ultrasound scan of the arterial or venous flow of the abdomen and/or reproductive organs, with color Doppler flow and spectral waveform analysis with image documentation. Exam focused on the region of clinical interest. Duplex images were received to evaluate vascular conditions. COMPARISON: US transvaginal [id number] 06/21/2020 10:31 AM FINDINGS: Ovaries: Right ovarian blood flow pattern is unremarkable on color Doppler analysis. Spectral waveforms are normal. There is color Doppler flow in the left ovarian solid tissue. Spectral waveforms are unremarkable. IMPRESSION: Negative for ovarian torsion. PROCEDURE INFORMATION: Exam: US Pelvis Complete, Transabdominal and US Pelvis, Transvaginal Exam date and time: 10/09/2020 8:42 PM Age: 30 years old Clinical indication: Pelvic pain; Prior surgery; Surgery type: Lt tubal abscess; Additional info: Abd pain TECHNIQUE: Imaging protocol: Real-time transabdominal and transvaginal pelvic ultrasound (complete) with image documentation. Transvaginal imaging was used for better evaluation of the endometrium, adnexa, and/or cervix. COMPARISON: US transvaginal [id number] 06/21/2020 10:31 AM FINDINGS: Uterus/cervix: Anteflexed position of the uterus. Uterine morphology and size is normal. No focal uterine mass. Homogeneous echogenic endometrial complex without thickening. Cervix is unremarkable. Endometrial complex estimated 7 mm thickness. Right adnexa: Right ovary dimensions are normal. Several tiny follicles. Ovarian blood flow is normal on color Doppler and spectral Doppler waveform analysis. Size dimensions of the right ovary estimated 3.1 cm x 1.9 cm x 1.9 cm. Left adnexa: Within the left adnexa multi locular cystic masslike structure. Uncertain if this represents the left ovary with multiple small cysts, with a couple of the locules mildly complicated by internal echogenic debris. Alternatively paraovarian cysts or dilated fallopian tube adjacent the left ovary cannot be excluded. Color Doppler flow is noted at the peripheral aspect of structure as well as unremarkable spectral Doppler waveform imaging. Intraperitoneal space: Trace pelvic free fluid. Urinary bladder: Unremarkable. US/US pelvic with transvaginal IMPRESSION: 1. Negative for ovarian torsion. 2. Multi locular cystic structure of the left adnexa. Correlation with prior surgical history is necessary. This may represent the left ovary with multiple small cysts. Alternatively a dilated fallopian tube adjacent to the left ovary cannot be excluded. 3. Normal right ovary. 4. Normal uterus and endometrium.
[2020-10-09 19:45] VITALS: BP 100/55; PULSE 57; RESP 18; TEMP 36.7; O2SAT 97
[2020-10-09] MEDS: ondansetron 2 mg/ML SDV 2 mL 4 MG IVP (19:47)
[2020-10-09 19:48] VITALS: RESP 18
[2020-10-09] MEDS: morphine 4 mg/mL SDV 1 mL IVP (19:48)
[2020-10-09 22:40] VITALS: BP 108/72; PULSE 68; RESP 16; TEMP 37.2; O2SAT 98
[2020-10-09 23:17] VITALS: BMI 52.4
[2020-10-09] MEDS: nicotine 21 mg Patch 1 PATCH TRANSDERMA (23:40)
[2020-10-09 23:41] VITALS: RESP 18
[2020-10-09] MEDS: sodium chloride 0.9% 1,000 ML 100 ML IV (23:41)
[2020-10-09] MEDS: HYDROmorphone 1 mg/mL INJ 1 mL 2 MG IVP (23:41)
[2020-10-09 23:45] VITALS: BP 103/66; PULSE 67; RESP 18; TEMP 36.6; O2SAT 97
[2020-10-10] VITALS: BP 103/66; PULSE 67; RESP 18; TEMP 36.6; O2SAT 97
[2020-10-10 04:00] VITALS: BP 100/66; PULSE 51; RESP 15; TEMP 36.4; O2SAT 95
--- NOTE | 2020-10-10 05:03 | PC.NURSE ---
iv pump was beeping. plugged iv pump in. patient asleep at this time.
[2020-10-10 05:31] LABS: Basophils % 0.3 %; Eosinophils # 0.3 10^3/uL (0.0-0.8); Eosinophils % 4.9 %; Hemoglobin 11.8 g/dL (11.5-15.3); Lymphocytes # 2.8 10^3/uL (0.8-4.8); Lymphocytes % 42.8 %; Mean Corpuscular HGB Conc 32.8 g/dL (30.0-36.0); Mean Corpuscular Hemoglobin 31.1 pg (28.0-34.0); Mean Corpuscular Volume 94.7 fL (81-99); Monocytes # 0.6 10^3/uL (0.2-0.9); Monocytes % 8.5 %; Neutrophils % 43.2 %; Nucleated Red Blood Cells % 0 %; Platelet Count 246 10^3/cmm (130-400); Red Cell Distribution Width 12.6 % (12.1-15.1); White Blood Count 6.5 10^3/uL (4.0-10.0)
[2020-10-10] MEDS: ondansetron 2 mg/ML SDV 2 mL 4 MG IVP (05:47)
[2020-10-10] MEDS: ketorolac 30 mg/mL INJ IVP (09:59)
[2020-10-10 10:04] VITALS: BP 110/73; PULSE 59; RESP 16; TEMP 36.8; O2SAT 99
--- NOTE | 2020-10-10 12:40 | P.DS_ITS ---
Discharge Providers Date of Admission: 10/09/20 23:15 Date of Discharge: October 10, 2020 Attending Provider at Admission: Avelina Goode MD Attending Provider at Discharge: Avelina Goode MD Primary Care Provider: ARUNA Garza Diagnoses at Discharge Discharge Diagnosis (1) Abdominal pain: Status: Acute Qualifiers: Abdominal location: left lower quadrant Qualified Code(s): R10.32 - Left lower quadrant pain (2) Ovarian cyst: Status: Acute Reason for Visit Reason for Visit: Lower Left ABD Pain/Post Surgery Related Hospital Course Hospital Course The patient was admitted from the ER for LLQ pain, not controlled with pain medication. She received a dose of dilaudid and slept all night. She received a dose of toradol approximately 12 hours later and her pain was well controlled with that. The patient was started on OCP to hopefully regulate her ovarian cysts. She is to follow up with her regular physician, Dr. Cummings Discharge Data Data Completed and Pending: Completed Studies During Hospitalization Category Date Time Status CT abdomen pelvis w con* [id number] Urge nt Cat Scan 10/09/20 18:07 Completed US pelvic with tr ansvaginal Urgent Ultrasound 10/09/20 19:43 Completed Labs from last 24 hours 10/10/20 10/09/20 10/09/20 05:20 18:35 18:35 WBC 6.5 RBC 3.80 L Hgb 11.8 Hct 36.0 L MCV 94.7 MCH 31.1 MCHC 32.8 RDW 12.6 Plt Count 246 MPV 10.0 Neut % (Auto) 43.2 Lymph % (Auto) 42.8 [place] % (Auto) 8.5 Eos % (Auto) 4.9 Baso % (Auto) 0.3 Neut # (Auto) 2.80 Lymph # (Auto) 2.8 [place] # (Auto) 0.6 Eos # (Auto) 0.3 Baso # (Auto) 0.0 Nucleated RBC % (a uto) 0 Nucleated RBCs # 0.0 Sodium Potassium Chloride Carbon Dioxide Anion Gap BUN Creatinine GFR Calculation Glucose Calculated Osmolal ity Calcium Total Bilirubin AST ALT Alkaline Phosphata se Total Protein Albumin Globulin Lipase HCG, Qual Negative Urine Color Yellow Urine Appearance Clear Urine pH 7 Ur Specific Gravit y 1.005 Urine Protein Neg Urine Glucose (UA) Norm Urine Ketones Negative Urine Blood Neg Urine Nitrate Negative Urine Bilirubin Neg Urine Urobilinogen Norm Ur Leukocyte Darlene ase Trace H Urine RBC 0-4 H Urine WBC 0-4 H Ur Squamous Epith Cells 0-4 H Amorphous Sediment 1+ Urine Bacteria Trace 10/09/20 10/09/20 18:35 18:35 WBC 8.4 RBC 3.96 L Hgb 12.3 Hct 37.5 MCV 94.7 MCH 31.1 MCHC 32.8 RDW 12.6 Plt Count 301 MPV 10.2 Neut % (Auto) 50.5 Lymph % (Auto) 37.0 [place] % (Auto) 8.1 Eos % (Auto) 3.7 Baso % (Auto) 0.5 Neut # (Auto) 4.25 Lymph # (Auto) 3.1 [place] # (Auto) 0.7 Eos # (Auto) 0.3 Baso # (Auto) 0.0 Nucleated RBC % (a uto) 0 Nucleated RBCs # 0.0 Sodium 138 Potassium 4.1 Chloride 104 Carbon Dioxide 26 Anion Gap 12.1 BUN 9 Creatinine 0.7 GFR Calculation 99.6 Glucose 88 Calculated Osmolal ity 284 L Calcium 8.5 Total Bilirubin 0.2 AST 22 ALT 23 Alkaline Phosphata se 84 Total Protein 6.8 Albumin 4.1 Globulin 2.7 Lipase 28 HCG, Qual Urine Color Urine Appearance Urine pH Ur Specific Gravit y Urine Protein Urine Glucose (UA) Urine Ketones Urine Blood Urine Nitrate Urine Bilirubin Urine Urobilinogen Ur Leukocyte Darlene ase Urine RBC Urine WBC Ur Squamous Epith Cells Amorphous Sediment Urine Bacteria Vitals: Last Vital Signs Temp 98.3 F 10/10/20 10:04 Pulse 59 L 10/10/20 10:04 Resp 16 10/10/20 10:04 BP 110/73 10/10/20 10:04 Pulse Ox 99 10/10/20 10:04 Discharge Plan Discharge Patient Disposition: Home Condition: Stable Prescriptions: New Aviane 0.1-20 mg-mcg tablet 1 tab PO DAILY Qty: 28 RF: 12 Discharge Orders: Discharge Order (Routine); Ordered 10/10/20 Ordered By: Avelina Goode Referrals: Fuad Colby MD [Physician] - Discharge Diet: Usual diet Patient Instructions: Ovarian Cyst (DC), OB Discharge Report, OB Food/Drug Interaction Guide, Opioid Safety Discharge Attestations Time Spent in Discharge Care*: less than 30 min Quality Metrics Clinical Quality Measures During this hospital stay, did patient experience: None Coding Level of Care Code Acute Chg FW DC note Diagnoses Abdominal pain R10.32 Abdominal location: left lower quadrant Ovarian cyst N83.209
--- NOTE | 2020-10-10 12:40 | PM.HP ---
Providers/Chief Complaint Admitting Physician: Avelina Goode MD Primary Care Provider: ARUNA Garza Chief Complaint: Lower Left ABD Pain/Post Surgery Related History of Present Illness Chela Sandoval is a 30 year old female who presents to the ER with a two weeks history of LLQ pain, that got much worse tonight. In June, she was diagnosed with a tubo-ovarian abscess and had surgery. Her left fallopian tube was removed and a cyst was removed off of her right ovary. She states that the pain is the same as then. She had a CT scan which showed a left adnexal mass. Ultrasound confirmed a 6 cm, possible hemorrhagic cyst on the left. Ovarian torsion was ruled out. The patient is morbidly obese and reports that her cycles are very irregular. She is not using any contraception. Her pain is not controlled and therefore she will be admitted for pain control and possible surgery in the AM, if extreme pain persists. Review of Systems General: Reports: 10 or more systems reviewed and unremarkable except in HPI and below Medications/Allergies Home Medications Medication Instructions Recorded Confirmed Last Taken Type levonorgestrel-ethinyl estrad 1 tab PO DAILY #28 tab 10/10/20 Unknown Rx [Aviane] Allergies Allergy/AdvReac Type Severity Reaction Status Date / Time No Known Allergies Allergy Verified 07/06/20 09:34 PFSH Acute PFSH: Medical History Depression with anxiety Surgical History No pertinent past surgical history Family History Grandmother Cancer, Onset Age: 40 Maternal, skin cancer Grandfather Chronic kidney disease (CKD), Onset Age: 40 maternal Family/Other Diabetes paternal aunt Hypertension maternal aunt Mother Hypertension Denies family history of Colon cancer Ovarian cancer Clotting disorder Heart disease Hyperlipidemia Psychiatric illness Breast cancer Anesthesia complication Bleeding disorder Uterine cancer Thyroid condition Stroke Social History Smoking and tobacco status: current every day smoker Alcohol intake: never Female Reproductive History: Date of last menstrual period: 08/16/20 Vitals/I&O/Wt Last Vital Signs Temp 98.3 F 10/10/20 10:04 Pulse 59 L 10/10/20 10:04 Resp 16 10/10/20 10:04 BP 110/73 10/10/20 10:04 Pulse Ox 99 10/10/20 10:04 Weight last 48 hrs Weight 325 lb 0.017 oz Weight 325 lb Physical Exam Const: COMMON NORMALS: patient oriented x3, alert and well nourished GENERAL APPEARANCE: cooperative, well kempt, well developed, in distress and anxious; not comfortable ORIENTATION/CONSCIOUSNESS: Yes awake, Yes oriented to person, Yes oriented to place and Yes oriented to time Neck/C-Spine: COMMON NORMALS: supple GENERAL: Yes normal visual inspection Resp: COMMON NORMALS: normal respiratory effort EFFORT & INSPECTION: Yes able to speak in complete sentences GI: COMMON NORMALS: Soft to palpation and non-tender Extremity: COMMON NORMALS: no clubbing, cyanosis or edema Psych: COMMON NORMALS: mental status grossly normal, Normal thought process present, cooperative, normal affect, speech normal and activity/motor behavior normal APPEARANCE: Yes grossly normal and Yes well kempt ATTITUDE: Yes engaged ACTIVITY/MOTOR BEHAVIOR: Yes appropriate eye contact SPEECH: Yes normal speech ATTENTION/CONCENTRATION: Yes attention grossly intact Data : 10/10/20 05:20 10/09/20 18:35 A&P Assessment and plan (1) Abdominal pain: admit for observation pain control npo in case surgery is warranted in the AM Status: Acute Qualifiers: Abdominal location: left lower quadrant Qualified Code(s): R10.32 - Left lower quadrant pain (2) Ovarian cyst: Status: Acute Attestations Medical Necessity Statement*: The patient is admitted for observation Coding Level of Care Code Acute 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
[2020-10-10 13:05] VITALS: BP 112/71; PULSE 66; RESP 16; TEMP 36.7; O2SAT 99
--- NOTE | 2020-10-12 11:21 | PC.RESP ---
SMOKING CESSATION INFORMATION SENT TO PATIENT.
== END 2020-10-10 13:10 | disposition home or self-care (01) ==
LOC: ER 21:51 → OBGYN 10-10 06:28
PROVIDERS: Admitting Provider Obstetrics & Gynecology; Emergency Provider Emergency Medicine; PCP Nurse Practitioner Family; Visit Provider Obstetrics & Gynecology
DX: R10.32 Left lower quadrant pain (principal); N83.209 Unspecified ovarian cyst, unspecified side
CPT/HCPCS: 74177; 76830; 76856; 80053; 81001; 83690; 84703; 85025; 93976; 96361; 96374; 96375; 99285; G0378; J1170; J1885; J2270; J2405; J7030; Q9967

== ENCOUNTER → 2021-04-02 14:56 | Outpatient (BNVA) | payer MEDICAID, SELFPAY | PROVIDERS: PCP Nurse Practitioner Family; Visit Provider Obstetrics & Gynecology | DX: R10.32 Left lower quadrant pain (principal); N83.201 Unspecified ovarian cyst, right side | CPT/HCPCS: 76830 ==

== ENCOUNTER → 2021-12-06 15:23 | Outpatient (BNVA) | payer MEDICAID, SELFPAY | PROVIDERS: PCP Nurse Practitioner Family; Visit Provider Nurse Practitioner Family | DX: J02.9 Acute pharyngitis, unspecified (principal) | CPT/HCPCS: 87880 ==

== ENCOUNTER → 2023-04-15 15:37 | Outpatient (BNVA) | payer MEDICAID, SELFPAY | PROVIDERS: Visit Provider Nurse Practitioner Family | DX: Z86.16 Personal history of COVID-19 (principal); R06.02 Shortness of breath; K04.7 Periapical abscess without sinus; F32.A Depression, unspecified; F52.22 Female sexual arousal disorder; E55.9 Vitamin D deficiency, unspecified; Z13.6 Encounter for screening for cardiovascular disorders; Z79.899 Other long term (current) drug therapy; R53.83 Other fatigue; D64.9 Anemia, unspecified | CPT/HCPCS: 71046 ==